=== PATIENT | female | born 1990 | race Caucasian/White ===

== ENCOUNTER 2017-06-26 20:43 | Inpatient (IN) | payer OTHER ==
[~2017-06-26] VITALS: Ht 170.2 cm; Wt 49.5 kg
--- NOTE | 2017-06-26 21:09 | EMERGENCY ROOM VISIT NOTE ---
History Report prepared by Yu: Errol Ocampo Under the Supervision of: Dr. Sukhjinder Dangelo M.D. First contact with patient: 20:50 Chief Complaint: MENTAL HEALTH EVALUATION Stated Complaint: MHID History of Present Illness The patient is a 26 year old white female with a past medical history of bipolar disorder who presents to the ED with a cc of constant suicidal ideations beginning a few months ago. Pt states she currently takes 25mg of Lamictal for bipolar disorder. She reports she just started the Lamictal a few months ago after being hospitalized after starting Effexor. Pt notes she has not felt herself since she was on Effexor. She states she moved her three weeks ago and applied for 36 jobs in three days and walked 40 miles. Pt reports she will go home and overdose on Benadryl and Tylenol if she is discharged. She notes she has been hitting herself to inflict bruises, and the past few weeks have been hazy. Pt states she also has a history of cutting herself and head hitting. Positive constant sensation of something on her skin burning, one alcoholic drink a night. Negative missing a dose of medication, drug use, tobacco use, taking extra medication, homicidal ideations, auditory hallucinations, visual hallucinations. Source of History: patient Onset: few months ago Quality: other (SI) Timing: constant Modifying Factors (Worsening): other (Effexor) Note: Associated symptoms: sensation of something on her skin burning Denies: homicidal ideations, auditory hallucinations, visual hallucinations Review of Systems See HPI for pertinent positives and negatives. A total of ten systems were reviewed and were otherwise negative. Past Medical & Surgical Medical Problems: (1) Bipolar disorder Family History Patient reports no known family medical history. Social History Alcohol Use: occasionally Marital Status: single Housing Status: lives alone Occupation Status: employed Current/Historical Medications Scheduled Cyanocobalamin (Cyanocobalamin), 1,000 MCG SQ MONTHLY Etonogestrel (Nexplanon), 68 MG INTRAD 3YEARS Lamotrigine (Lamictal), 25 MG PO DAILY Allergies Coded Allergies: Dairy (Verified Adverse Reaction, Intermediate, GI UPSET, RASH, 06/26/17) Uncoded Allergies: ARTIFICIAL SWEETNER (Adverse Reaction, Intermediate, GI UPSET AND HEADACHE , 06/26/17) Physical Exam Vital Signs Date Time Temp Pulse Resp B/P (MAP) Pulse Ox O2 Delivery O2 Flow Rate FiO2 06/26/17 22:27 87 108/75 99 Room Air 06/26/17 20:48 36.7 85 109/68 100 Room Air Physical Exam GENERAL: Awake, alert, well-appearing, NAD HENT: Normocephalic, atraumatic. EYES: Normal conjunctiva. Sclera non-icteric. NECK: Supple. No nuchal rigidity. FROM. RESPIRATORY: CTAB, no rhonchi, wheezing, crackles CARDIAC: RRR, no MRG ABDOMEN: Soft, NTND, BS+ MSK: No chest wall TTP, no LE edema NEURO: GCS 15, CN 2-12 intact, moves all 4s on command SKIN: No rash or jaundice noted. PSYCHIATRIC: No HI, AVH. Positive formication and SI. Medical Decision & Procedures Laboratory Results 06/26/17 21:00 Red Blood Count 4.66, Mean Corpuscular Volume 90.8, Mean Corpuscular Hemoglobin 31.1, Mean Corpuscular Hemoglobin Concent 34.3, Mean Platelet Volume 9.5, Neutrophils (%) (Auto) 47.6, Lymphocytes (%) (Auto) 40.8, Monocytes (%) (Auto) 10.0, Eosinophils (%) (Auto) 1.0, Basophils (%) (Auto) 0.4, Neutrophils # (Auto ) 4.97, Lymphocytes # (Auto) 4.26, Monocytes # (Auto) 1.04, Eosinophils # (Auto ) 0.10, Basophils # (Auto) 0.04 06/26/17 21:00 Test 06/26/17 21:00 06/26/17 21:08 White Blood Count 10.43 K/uL (4.8-10.8) Red Blood Count 4.66 M/uL (4.2-5.4) Hemoglobin 14.5 g/dL (12.0-16.0) Hematocrit 42.3 % (37-47) Mean Corpuscular Volume 90.8 fL (80-100) Mean Corpuscular Hemoglobin 31.1 pg (25-34) Mean Corpuscular Hemoglobin Concent 34.3 g/dl (32-36) Platelet Count 347 K/uL (130-400) Mean Platelet Volume 9.5 fL (7.4-10.4) Neutrophils (%) (Auto) 47.6 % Lymphocytes (%) (Auto) 40.8 % Monocytes (%) (Auto) 10.0 % Eosinophils (%) (Auto) 1.0 % Basophils (%) (Auto) 0.4 % Neutrophils # (Auto) 4.97 K/uL (1.4-6.5) Lymphocytes # (Auto) 4.26 K/uL (1.2-3.4) Monocytes # (Auto) 1.04 K/uL (0.11-0.59) Eosinophils # (Auto) 0.10 K/uL (0-0.5) Basophils # (Auto) 0.04 K/uL (0-0.2) RDW Standard Deviation 40.6 fL (36.4-46.3) RDW Coefficient of Variation 12.3 % (11.5-14.5) Immature Granulocyte % (Auto) 0.2 % Immature Granulocyte # (Auto) 0.02 K/uL (0.00-0.02) Anion Gap 7.0 mmol/L (3-11) Est Creatinine Clear Calc Drug Dose 92.1 ml/min Estimated GFR () 140.5 Estimated GFR (Non- 121.3 BUN/Creatinine Ratio 10.9 (10-20) Calcium Level 8.9 mg/dl (8.5-10.1) Magnesium Level 2.3 mg/dl (1.8-2.4) Total Bilirubin 0.4 mg/dl (0.2-1) Direct Bilirubin 0.1 mg/dl (0-0.2) Aspartate Amino Transf (AST/SGOT) 10 U/L (15-37) Alanine Aminotransferase (ALT/SGPT) 14 U/L (12-78) Alkaline Phosphatase 82 U/L (45-117) Total Protein 7.3 gm/dl (6.4-8.2) Albumin 4.5 gm/dl (3.4-5.0) Thyroid Stimulating Hormone (TSH) 1.880 uIu/ml (0.300-4.500) Salicylates Level < 1.7 mg/dl (2.8-20) Acetaminophen Level < 2 ug/ml (10-30) Ethyl Alcohol mg/dL < 3.0 mg/dl (0-3) Urine Color YELLOW Urine Appearance TURBID (CLEAR) Urine pH 6.5 (4.5-7.5) Urine Specific [place] 1.020 (1.000-1.030) Urine Protein NEG (NEG) Urine Glucose (UA) NEG (NEG) Urine Ketones NEG (NEG) Urine Occult Blood NEG (NEG) Urine Nitrite NEG (NEG) Urine Bilirubin NEG (NEG) Urine Urobilinogen NEG (NEG) Urine Leukocyte Esterase TRACE (NEG) Urine WBC (Auto) 1-5 /hpf (0-5) Urine RBC (Auto) 0-4 /hpf (0-4) Urine Hyaline Casts (Auto) 1-5 /lpf (0-5) Urine Epithelial Cells (Auto) >30 /lpf (0-5) Urine Bacteria (Auto) 1+ (NEG) Urine Mucus PRESENT (NONE PRSENT) Urine Test NEG (NEG) Urine Opiates Screen NEG (NEG) Urine Methadone, Qualitative NEG (NEG) Urine Barbiturates NEG (NEG) Urine Phencyclidine (PCP) Level NEG (NEG) Ur Amphetamine/Methamphetamine NEG (NEG) MDMA (Ecstasy) Screen NEG (NEG) Urine Benzodiazepines Screen NEG (NEG) Urine Cocaine Metabolite NEG (NEG) Urine Marijuana (THC) NEG (NEG) Laboratory results reviewed by me Medications Administered Medications (Trade) Dose Ordered Sig/Jay Route Start Time Stop Time Status Last Admin Dose Admin Potassium Chloride (Klor-Con M10) 40 meq STK-MED ONCE .ROUTE 06/26/17 21:58 06/26/17 21:59 DC 06/26/17 22:00 40 MEQ ED Course 2054: The patient was evaluated in room A06. A complete history and physical exam was performed. 2334: I discussed with the psychiatric pillowcase cutter. The patient is medically cleared an accepted at [facility]. Medical Decision Nursing notes reviewed. Ancillary studies and prior records reviewed. The patient is a 26 year old white female with a past medical history of bipolar disorder who presents to the ED with a cc of constant suicidal ideations beginning a few months ago. Differential diagnosis: Etiologies such as mood disorder, infection, hypoglycemia, electrolyte abnormalities, cardiac sources, intracerebral event, toxicologic, neurologic, as well as others were entertained. Patient was seen and evaluated the bedside. Patient was complaining some SI with plan to overdose on Benadryl and Tylenol she returned home. Patient has had a history of cutting and head pain. No recent head pain the patient does not take any blood thinning medications. Of note the patient did recently move and was recently transitioned from Effexor to Lamictal. Patient sounds as though she did have an episode of ainsley and now may be depressed. The patient states that she applied over 36 jobs stayed up for 2 days and walked 40 miles in a very short period of time. Patient did have blood work completed along with urinalysis, UDS, tox screen, and urine test. Patient's blood work did show some mild hypokalemia which is repleted. Magnesium level was also added. Patient's tox screen was negative. Patient did have borderline low sugar at 69. Patient was given a meal and her repeat sugar was greater than 80. Patient was deemed medically clear at this time. Patient was accepted for voluntary inpatient treatment. Patient was taken to 3 S. Impression Primary Impression: Bipolar disorder Additional Impressions: Depression Hypokalemia Suicidal ideation Scribe Attestation The scribe's documentation has been prepared under my direction and personally reviewed by me in its entirety. I confirm that the note above accurately reflects all work, treatment, procedures, and medical decision making performed by me. Departure Information Dispostion [facility] Acute Care Patient Instructions My [facility] Problem Qualifiers Primary Impression: Bipolar disorder Active/Remission status: currently active Current bipolar episode type: depressed Current episode severity: moderate Qualified Codes: F31.32 - Bipolar disorder, current episode depressed, moderate Additional Impressions: Depression Depression Type: unspecified Qualified Codes: F32.9 - Major depressive disorder, single episode, unspecified
[2017-06-26 21:17] LABS: BASO % 0.4 %; BASO ABS # 0.04 K/uL (0-0.2); HEMATOCRIT 42.3 % (37-47); HEMOGLOBIN 14.5 g/dL (12.0-16.0); IG# 0.02 K/uL (0.00-0.02); LYMPH % 40.8 %; LYMPH ABS # 4.26 K/uL (1.2-3.4); MEAN CELL VOLUME 90.8 fL (80-100); MEAN CORPUSCULAR HEMOGLOBIN 31.1 pg (25-34); MEAN CORPUSCULAR HGB CONC 34.3 g/dl (32-36); MEAN PLATELET VOLUME 9.5 fL (7.4-10.4); MONO ABS # 1.04 K/uL (0.11-0.59); NEUT % 47.6 %; NEUT ABS # 4.97 K/uL (1.4-6.5); PLATELET COUNT 347 K/uL (130-400); RED CELL DISTRIBUTION WIDTH CV 12.3 % (11.5-14.5); RED CELL DISTRIBUTION WIDTH SD 40.6 fL (36.4-46.3); WHITE BLOOD COUNT 10.43 K/uL (4.8-10.8)
[2017-06-26 21:34] LABS: ALBUMIN 4.5 gm/dl (3.4-5.0); CALCIUM 8.9 mg/dl (8.5-10.1); CREATININE 0.7 mg/dl (0.60-1.20); POTASSIUM 3.4 mmol/L (3.5-5.1)
[2017-06-26 21:44] LABS: TOTAL PROTEIN 7.3 gm/dl (6.4-8.2)
[2017-06-26] MEDS ORDERED: POTASSIUM CHLORIDE 20 MEQ TABCR PO STA (21:52)
[2017-06-26] MEDS ORDERED: POTASSIUM CHLORIDE 10 MEQ TABCR ONE (21:58)
[2017-06-26] MEDS ORDERED: LAMO25TA PO (22:33)
[2017-06-26] MEDS ORDERED: ETON1IMP2 INTRAD (22:36)
[2017-06-26] MEDS ORDERED: CYNI1000 SQ (22:40)
[2017-06-27] MEDS ORDERED: NURSING VERBAL MED ORDER ONE (00:15)
[2017-06-27 00:18] VITALS: BMI 16.3
[2017-06-27 00:30] VITALS: BP 93/64; PULSE 93; TEMP 36.8; BMI 16.3
[2017-06-27 00:37] VITALS: O2SAT 98
[2017-06-27] MEDS ORDERED: SODIUM CHLORIDE 0.65% NA SOLN 45 ML (OCEAN) PRN (01:00)
[2017-06-27] MEDS ORDERED: BISMUTH SUBSALICYLATE PER ML OMNICELL CHARGE PO PRN (01:00)
[2017-06-27] MEDS ORDERED: MAGNESIUM HYDROXIDE SUSP 30 ML UDC PO PRN (01:00)
[2017-06-27] MEDS ORDERED: ACETAMINOPHEN 325 MG TAB PO PRN (01:00)
[2017-06-27 01:04] VITALS: BMI 17.1
[2017-06-27] MEDS: hydrOXYzine HCL 25 MG TAB PO PRN ×2 (01:08→21:48)
[2017-06-27 06:47] VITALS: BP_SYST 96; BP_SYST 97; BP_DIAS 63; BP_DIAS 66; PULSE 92; PULSE 99; TEMP 36.8
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
[2017-06-27 14:49] VITALS: Ht 170.2 cm; Wt 49.5 kg
[2017-06-27] MEDS ORDERED: QUETIAPINE FUMARATE 100 MG TAB PO SCH (22:00)
[2017-06-28 06:51] VITALS: BP_SYST 100; BP_SYST 95; BP_DIAS 65; BP_DIAS 66; PULSE 73; PULSE 97; TEMP 36.8
[2017-06-28] MEDS: hydrOXYzine HCL 25 MG TAB PO PRN ×2 (09:45→22:30)
--- NOTE | 2017-06-28 11:17 | Psychiatric Progress Notes ---
Progress Note Date of Service Jun 28, 2017. Interval History 26-year-old woman admitted voluntarily with severe depression and suicidality. Chief Complaint "Not very good". Subjective Patient was seen & assessed interval progress reviewed with Treatment Team. The patient had a meeting with her mother this AM and got so upset she had to leave for a while. She feels that she is a failure, that she's never going to get better because she doesn't know what she needs. She feels guilty that her mother has to leave her job to come help her as "my mom has a life to live". She reports that her SI are worse today in light of the family meeting. She is attending groups, is eating all of her meals, and is tending to her ADL's. Her skin continues to feel like its on fire "like my skin isn't my skin", but says any skin eruptions have not worsened with increase to lamictal. She is able to contract for safety here on the unit saying "I guess I can't kill myself here so why try.". Sleep was much improved last night with vistaril and seroquel Review of Systems Constitutional: No fever, No chills, No sweats, No weight loss, No weakness, No fatigue, No problem reported ENT: No hearing loss, No unusual epistaxis, No nasal symptoms, No sore throat, No tinnitus, No dental problems, No trouble swallowing, No problem reported Respiratory: No cough, No sputum, No wheezing, No shortness of breath, No dyspnea on exertion, No dyspnea at rest, No hemoptysis, No problem reported Cardiovascular: No chest pain, No orthopnea, No PND, No edema, No claudication , No palpitations, No problem reported Abdomen: No pain, No nausea, No vomiting, No diarrhea, No constipation, No GI bleeding, No problem reported Musculoskeletal: No joint pain, No muscle pain, No swelling, No calf pain, No problem reported Neurologic: + problem reported (sensation of skin burning) Psychiatric: + depression symptoms (with SI) Integumentary: + problem reported (skin eruptions lauryn to acne) Sleep Information Total Hours of Sleep: 6.50 Meal Information Percent of Breakfast Consumed: 100 Percent of Lunch Consumed: 100 Percent of Dinner Consumed: 100 Mental Status Exam During interview pt is: alert and oriented, cooperative Appearance: appropriately dressed, appropriately groomed Eye contact is: good Motor behavior is: steady gait & station, no abnormal motor movements Speech: normal in rate, rhythm & volume Affect: depressed, flat Mood is: depressed Thought process: goal directed Thought content: reality based without delusions Suicidal thought are: present, Plan: present (To overdose) Homicidal thoughts are: denied Hallucinations: denies auditory, denies visual Cognition: memory grossly intact, attention grossly intact, language grossly intact Intelligence estimated to be: average Insight: impaired Judgement: impaired Impression Difficult day, feeling that she will never get better, and still with SI. Will increase seroquel to 150 mg. HS tonight, continue lamictal. Showing some borderline traits with reactivity, relationship stress, abandonment issues. Will need a seasoned therapist at discharge. UA negative. Baseline FLP and FBS WNL. Plan (1) Bipolar disorder 06/27 - Will increase Lamictal to 50 mg. If rash emerges, then DC - Seroquel 100 mg. HS to target mood. titrate as tolerated - FLP and FBS for monitoring on atypicals - Repeat UA/C&S if indicated - Family meeting - Will need psychiatric aftercare - Q 15 min checks for safety - Encourage participation in group and individual counseling - Assist the patient to learn and utilize additional healthy coping strategies - Obtain records from current provider 06/28 - Increase Seroquel to 150 mg. HS - Continue current lamictal dose - Will need a seasoned therapist. (2) Neurologic abnormality 06/27 - Patient with long standing variation in pupil dilation lt>rt - Only other neuro symptoms is the burning sensations that emerged on Effexor - +family history for MS - Refer to neuro post discharge Dr. Sendy Martinez has personally been involved in reviewing this case and the development of these recommendations. Discharge / Aftercare Planning Primary Care Physician: Name: Alisa Jaramillo PA-C ([place]) Therapist: Name: None Simulation Analyst: Name: None Visit Code E&M Code: 55701 Inventory Assets Strengths: Good support from mother, has a job Needs: To learn and utilize additional healthy coping strategies Risk Factors Assessment : Yes /single/: Yes Higher / Fall in social status: No Health problems: No Mental Health Diagnoses: Yes Substance use disorders: No Previous attempt: Yes Previous psychiatric stay: Yes Hopelessness: No Smoker: No Protective Factors Assessment Christian beliefs: No : No Employed: Yes Data Vital Signs Last 24 Hrs: Date Time Temp Pulse Resp B/P (MAP) Pulse Ox O2 Delivery O2 Flow Rate FiO2 06/28/17 06:51 36.8 73 16 100/66 97 95/65 Meds Administered Last 24 Hrs: Meds Administered (Past 24Hrs) Medications (Trade) Dose Ordered Sig/Jay Route Start Time Stop Time Status Last Admin Dose Admin Potassium Chloride (Klor-Con M10) 40 meq STK-MED ONCE .ROUTE 06/26/17 21:58 06/26/17 21:59 DC 06/26/17 22:00 40 MEQ Hydroxyzine HCl (Vistaril Tab) 50 mg HSZ PRN PO 06/27/17 01:00 07/27/17 00:59 06/27/17 21:48 50 MG Hydroxyzine HCl (Vistaril Tab) 25 mg Q4H PRN PO 06/27/17 01:00 07/27/17 00:59 06/28/17 09:45 25 MG Lamotrigine (Lamictal Tab) 25 mg QAM PO 06/27/17 09:00 06/27/17 10:51 DC 06/27/17 10:05 25 MG Lamotrigine (Lamictal Tab) 50 mg QAM PO 06/28/17 09:00 07/28/17 08:59 06/28/17 09:02 50 MG Lamotrigine (Lamictal Tab) 25 mg 1100 ONCE PO 06/27/17 11:00 06/27/17 11:02 DC 06/27/17 12:22 25 MG Quetiapine Fumarate (seroQUEL TAB) 100 mg HS PO 06/27/17 22:00 07/27/17 21:59 06/27/17 21:44 100 MG Lab Results Last 24 Hrs: Last 24 Hours Test 06/28/17 06:58 Fasting Glucose 94 mg/dl Triglycerides Level 70 mg/dl Cholesterol Level 109 mg/dl HDL Cholesterol 42 mg/dl LDL Cholesterol, Calculated 53 mg/dl VLDL Cholesterol, Calculated 14 mg/dl Cholesterol/HDL Ratio 2.6 Problem Qualifiers (1) Bipolar disorder: Active/Remission status: currently active Current bipolar episode type: depressed Current episode severity: moderate Qualified Codes: F31.32 - Bipolar disorder, current episode depressed, moderate
[2017-06-28] MEDS ORDERED: QUETIAPINE FUMARATE 100 MG TAB PO SCH (22:00)
[2017-06-29 07:02] VITALS: BP_SYST 105; BP_SYST 98; BP_DIAS 63; BP_DIAS 67; PULSE 72; PULSE 97; TEMP 36.8
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
[2017-06-29] MEDS: QUETIAPINE FUMARATE 100 MG TAB PO SCH (21:36)
[2017-06-30 07:00] VITALS: BP 102/68; PULSE 89; PULSE 96; TEMP 36.8
--- NOTE | 2017-06-30 10:35 | Psychiatric Progress Notes ---
Progress Note Date of Service Jun 30, 2017. Interval History 26-year-old woman admitted voluntarily with severe depression and suicidality. Chief Complaint "I feel a little better today.". Subjective Patient was seen & assessed interval progress reviewed with Treatment Team. The patient had a difficult day yesterday, rated her mood 1/10. Today she is feeling some better rating her mood 4/10. She has received visits from her mother daily and understands that its something her mother needs to do for herself, but thinks its not necessary for her to take 4 hours out of her life every day. Mother will take a break for the weekend since its [employer] game making hotels scarce. Today Lina is worried about a bump on her tongue and concerned that its related to lamictal. She refused her AM dose until we talked. She has been talking in 1:1 about her breakup and how difficult that has been for her, and feels that the peer group here right now has been helpful to her because they are all quite verbal. She feels that "I tried to leave the nest and I failed". She reports that her work is aware that she is in the hospital. Mother has also been in touch with them, and work indicates that her job is waiting for her. She says that she has at least 2 other job offers if she doesn't return to her current job. She continues to have SI, feeling that she doesn't know how to feel better. She fell asleep quickly last night but did not stay asleep, and today feels sedated. Review of Systems Constitutional: + fatigue ENT: + problem reported (small bump on the lt tip of her tongue. No tongue swelling) Respiratory: No cough, No sputum, No wheezing, No shortness of breath, No dyspnea on exertion, No dyspnea at rest, No hemoptysis, No problem reported Cardiovascular: No chest pain, No orthopnea, No PND, No edema, No claudication , No palpitations, No problem reported Abdomen: No pain, No nausea, No vomiting, No diarrhea, No constipation, No GI bleeding, No problem reported Musculoskeletal: No joint pain, No muscle pain, No swelling, No calf pain, No problem reported Neurologic: No memory loss, No paralysis, No weakness, No numbness/tingling, No vertigo, No balance problems, No problem reported Psychiatric: + depression symptoms (with SI) Integumentary: + problem reported (No rashes to arms or legs) Sleep Information Total Hours of Sleep: 6.50 Meal Information Percent of Breakfast Consumed: 90 Percent of Lunch Consumed: 100 Percent of Dinner Consumed: 100 Mental Status Exam During interview pt is: alert and oriented, cooperative Appearance: appropriately dressed, appropriately groomed (Short blonde hair, glasses), appeared stated age Eye contact is: good Motor behavior is: steady gait & station, no abnormal motor movements Speech: normal in rate, rhythm & volume Affect: mood congruent, depressed, flat Mood is: depressed Thought process: goal directed Thought content: cognitive distortions Suicidal thought are: present, Plan: present (To overdose), Intent: denied (On the unit, but states she would try to harm herself if not in the hospital) Homicidal thoughts are: denied Hallucinations: denies auditory, denies visual Cognition: memory grossly intact, attention grossly intact, language grossly intact Intelligence estimated to be: average Insight: impaired Judgement: impaired Medication Trials Prozac- aggressive Klonopin- abused Effexor- skin burning sensation Wellbutrin- flu like symptoms Abilify- Weight gain Trazodone- N, morning hangover Impression The patient remains depressed and suicidal and making good use of both group and individual counseling. Having some sedation from Seroquel. Will hold titration tonight. I don't believe that the bump on her tongue is an allergic reaction to lamictal so encouraged her to take it. We will continue to observe closely for an S&S of SJS. Plan (1) Bipolar disorder 06/27 - Will increase Lamictal to 50 mg. If rash emerges, then DC - Seroquel 100 mg. HS to target mood. titrate as tolerated - FLP and FBS for monitoring on atypicals - Repeat UA/C&S if indicated - Family meeting - Will need psychiatric aftercare - Q 15 min checks for safety - Encourage participation in group and individual counseling - Assist the patient to learn and utilize additional healthy coping strategies - Obtain records from current provider 06/28 - Increase Seroquel to 150 mg. HS - Continue current lamictal dose - Will need a seasoned therapist. 06/29 -Increase quetiapine to 200 mg nightly. Continue lamotrigine standard dose titration. -Fasting lipid profile and glucose for baseline on an atypical antipsychotic were within normal limits. 06/30 - Continue current meds - Try to provide patient with some exercises from DBT (2) Neurologic abnormality 06/27 - Patient with long standing variation in pupil dilation lt>rt - Only other neuro symptoms is the burning sensations that emerged on Effexor - +family history for MS - Refer to neuro post discharge (3) Borderline personality disorder 06/29 -patient reports she has been diagnosed with borderline personality disorder, although she does not necessarily agree with the diagnosis. She has displayed traits here, including reactivity of mood, interpersonal difficulties , chronic SI, and abandonment issues. 06/30 - Support appropriate boundaries Discharge / Aftercare Planning Primary Care Physician: Name: Alisa Jaramillo PA-C ([place]) Therapist: Name: None Boot Lace Cutter Machine: Name: Melva Neurologist: Name: [facility] Date of Appointment: July 31, 2017 Time of Appointment: 1:25 p.m. Appointment Notes: [address], [place] [address] Visit Code E&M Code: 53134 Inventory Assets Strengths: Good support from mother, has a job Needs: To learn and utilize additional healthy coping strategies, outpatient care Risk Factors Assessment : Yes /single/: Yes Higher / Fall in social status: No Access to guns: No Health problems: No Mental Health Diagnoses: Yes Substance use disorders: No Previous attempt: Yes Family history of suicide: No Previous psychiatric stay: Yes Hopelessness: No Smoker: No Protective Factors Assessment Rastafarian beliefs: No : No Responsible for young children: No Employed: Yes Stable relationships: No Supportive family: Yes Good rapport with provider: No Data Vital Signs Last 24 Hrs: Date Time Temp Pulse Resp B/P (MAP) Pulse Ox O2 Delivery O2 Flow Rate FiO2 06/30/17 07:00 36.8 89 16 102/68 96 102/68 Meds Administered Last 24 Hrs: Meds Administered (Past 24Hrs) Medications (Trade) Dose Ordered Sig/Jay Route Start Time Stop Time Status Last Admin Dose Admin Quetiapine Fumarate (seroQUEL TAB) 150 mg HS PO 06/28/17 22:00 06/29/17 10:53 DC 06/28/17 21:29 150 MG Quetiapine Fumarate (seroQUEL TAB) 200 mg HS PO 06/29/17 22:00 07/28/17 21:59 06/29/17 21:36 200 MG Lab Results Last 24 Hrs: 06/26/17 21:00 Red Blood Count 4.66, Mean Corpuscular Volume 90.8, Mean Corpuscular Hemoglobin 31.1, Mean Corpuscular Hemoglobin Concent 34.3, Mean Platelet Volume 9.5, Neutrophils (%) (Auto) 47.6, Lymphocytes (%) (Auto) 40.8, Monocytes (%) (Auto) 10.0, Eosinophils (%) (Auto) 1.0, Basophils (%) (Auto) 0.4, Neutrophils # (Auto ) 4.97, Lymphocytes # (Auto) 4.26, Monocytes # (Auto) 1.04, Eosinophils # (Auto ) 0.10, Basophils # (Auto) 0.04 06/26/17 21:00 Test 06/26/17 21:00 06/26/17 21:08 06/26/17 22:31 06/27/17 00:00 White Blood Count 10.43 K/uL (4.8-10.8) Red Blood Count 4.66 M/uL (4.2-5.4) Hemoglobin 14.5 g/dL (12.0-16.0) Hematocrit 42.3 % (37-47) Mean Corpuscular Volume 90.8 fL (80-100) Mean Corpuscular Hemoglobin 31.1 pg (25-34) Mean Corpuscular Hemoglobin Concent 34.3 g/dl (32-36) Platelet Count 347 K/uL (130-400) Mean Platelet Volume 9.5 fL (7.4-10.4) Neutrophils (%) (Auto) 47.6 % Lymphocytes (%) (Auto) 40.8 % Monocytes (%) (Auto) 10.0 % Eosinophils (%) (Auto) 1.0 % Basophils (%) (Auto) 0.4 % Neutrophils # (Auto) 4.97 K/uL (1.4-6.5) Lymphocytes # (Auto) 4.26 K/uL (1.2-3.4) Monocytes # (Auto) 1.04 K/uL (0.11-0.59) Eosinophils # (Auto) 0.10 K/uL (0-0.5) Basophils # (Auto) 0.04 K/uL (0-0.2) RDW Standard Deviation 40.6 fL (36.4-46.3) RDW Coefficient of Variation 12.3 % (11.5-14.5) Immature Granulocyte % (Auto) 0.2 % Immature Granulocyte # (Auto) 0.02 K/uL (0.00-0.02) Anion Gap 7.0 mmol/L (3-11) Est Creatinine Clear Calc Drug Dose 92.1 ml/min Estimated GFR () 140.5 Estimated GFR (Non- 121.3 BUN/Creatinine Ratio 10.9 (10-20) Calcium Level 8.9 mg/dl (8.5-10.1) Magnesium Level 2.3 mg/dl (1.8-2.4) Total Bilirubin 0.4 mg/dl (0.2-1) Direct Bilirubin 0.1 mg/dl (0-0.2) Aspartate Amino Transf (AST/SGOT) 10 U/L (15-37) Alanine Aminotransferase (ALT/SGPT) 14 U/L (12-78) Alkaline Phosphatase 82 U/L (45-117) Total Protein 7.3 gm/dl (6.4-8.2) Albumin 4.5 gm/dl (3.4-5.0) Thyroid Stimulating Hormone (TSH) 1.880 uIu/ml (0.300-4.500) Salicylates Level < 1.7 mg/dl (2.8-20) Acetaminophen Level < 2 ug/ml (10-30) Ethyl Alcohol mg/dL < 3.0 mg/dl (0-3) Urine Mucus PRESENT (NONE PRSENT) Urine Test NEG (NEG) Urine Opiates Screen NEG (NEG) Urine Methadone, Qualitative NEG (NEG) Urine Barbiturates NEG (NEG) Urine Phencyclidine (PCP) Level NEG (NEG) Ur Amphetamine/Methamphetamine NEG (NEG) MDMA (Ecstasy) Screen NEG (NEG) Urine Benzodiazepines Screen NEG (NEG) Urine Cocaine Metabolite NEG (NEG) Urine Marijuana (THC) NEG (NEG) Bedside Glucose 84 mg/dl (70-90) Urine Color YELLOW Urine Appearance CLEAR (CLEAR) Urine pH 7.5 (4.5-7.5) Urine Specific [place] 1.011 (1.000-1.030) Urine Protein NEG (NEG) Urine Glucose (UA) NEG (NEG) Urine Ketones NEG (NEG) Urine Occult Blood NEG (NEG) Urine Nitrite NEG (NEG) Urine Bilirubin NEG (NEG) Urine Urobilinogen NEG (NEG) Urine Leukocyte Esterase TRACE (NEG) Urine WBC (Auto) 1-5 /hpf (0-5) Urine RBC (Auto) 0-4 /hpf (0-4) Urine Hyaline Casts (Auto) 0 /lpf (0-5) Urine Epithelial Cells (Auto) 5-10 /lpf (0-5) Urine Bacteria (Auto) NEG (NEG) Test 06/28/17 06:58 Fasting Glucose 94 mg/dl (70-99) Triglycerides Level 70 mg/dl (0-150) Cholesterol Level 109 mg/dl (0-200) HDL Cholesterol 42 mg/dl LDL Cholesterol, Calculated 53 mg/dl VLDL Cholesterol, Calculated 14 mg/dl Cholesterol/HDL Ratio 2.6 Problem Qualifiers (1) Bipolar disorder: Active/Remission status: currently active Current bipolar episode type: depressed Current episode severity: severe Psychotic features: without psychotic features Qualified Codes: F31.4 - Bipolar disorder, current episode depressed, severe, without psychotic features
[2017-06-30] MEDS: QUETIAPINE FUMARATE 100 MG TAB PO SCH (22:14)
[2017-06-30] MEDS: hydrOXYzine HCL 25 MG TAB PO PRN (22:58)
[2017-07-01 06:45] VITALS: BP_SYST 100; BP_SYST 98; BP_DIAS 65; BP_DIAS 66; PULSE 82; PULSE 99; TEMP 36.6
--- NOTE | 2017-07-01 12:56 | Psychiatric Progress Notes ---
Progress Note Date of Service Jul 01, 2017. Interval History 26-year-old woman admitted voluntarily with severe depression and suicidality. Chief Complaint "I'm just very agitated today. I'm at my limit". Subjective Patient was seen & assessed interval progress reviewed with Nursing. Staff reports the patient continues to request multiple 1-to-1 counseling sessions per shift. She shared with staff she does not feel ready for discharge. Pt was seen today to assess progress since admission. Pt reports being "fed up" with a particular patient on the unit; however, is understanding and empathetic to this individual's needs. She concerns that the sore on the tip of her tongue is becoming more painful and "annoying". Pt states she is concerned about her ongoing SI as "I had a major mood swing yesterday, I went from a 1 to a 7, but was still suicidal." Pt reports she was feeling "happy to leave here soon so I could go through with it." Pt confirms that she has been attending groups regularly and processing her recent break-ups in 1-on-1 counseling, but feels "it isn't really helping". She denies feeling there are things we could be doing better/differently to better assist her in this process. Pt agreeable to continuing medication. When inquiring about SI, patient states, "yes, definitely." She denies other needs or concerns today. Review of Systems Psych: denies symptoms other than stated above Constitutional: reports generalized headache EENMT: reports sore to tip of tongue, remains painful Cardiovascular: denied GI: denied Neurologic: denied Remainder of 10 body systems also reviewed and denied other than noted above. Sleep Information Total Hours of Sleep: 6.75 Meal Information Percent of Breakfast Consumed: 100 Percent of Lunch Consumed: 100 Percent of Dinner Consumed: 100 Mental Status Exam During interview pt is: alert and oriented, cooperative Appearance: appropriately dressed, appropriately groomed (Short blonde hair, glasses), appeared stated age Eye contact is: good Motor behavior is: steady gait & station, no abnormal motor movements (pt appears very calm) Speech: normal in rate, rhythm & volume Affect: flat, other (reports feeling "agitated", however remains outwardly calm during encounter) Mood is: depressed, irritable ("agitated", "at my limit") Thought process: goal directed Thought content: cognitive distortions Suicidal thought are: present, Plan: present ("my plan has not changed since I' ve been in here" - OD), Intent: denied (cannot contract for safety outside of hospital setting) Homicidal thoughts are: denied Hallucinations: denies auditory, denies visual Cognition: memory grossly intact, attention grossly intact, language grossly intact Intelligence estimated to be: average Insight: impaired Judgement: impaired Medication Trials Prozac- aggressive Klonopin- abused Effexor- skin burning sensation Wellbutrin- flu like symptoms Abilify- Weight gain Trazodone- N, morning hangover Impression The patient remains depressed and suicidal. She reports concern as, even when her mood improves, her SI is ongoing. Pt reports she maintains the same plan to overdose on medications and cannot contract for safety outside of the hospital setting. Sore on patient's tongue is barely visible on exam; however, I'm sympathetic to the pain she reports. She does report cold sores on her lips in the past, but never on her tongue. Discussed that it is likely unrelated to the Lamictal, but encouraged her to continue to observe for worsening or appearance of a rash elsewhere on her body. Will continue to monitor as unlikely, but could be related to SJS from Lamictal titration. Pt aware and agreeable to approach. Will continue medication at current dosage as patient reports ongoing fatigue from HS Seroquel. Plan (1) Bipolar disorder 06/27 - Will increase Lamictal to 50 mg. If rash emerges, then DC - Seroquel 100 mg. HS to target mood. titrate as tolerated - FLP and FBS for monitoring on atypicals - Repeat UA/C&S if indicated - Family meeting - Will need psychiatric aftercare - Q 15 min checks for safety - Encourage participation in group and individual counseling - Assist the patient to learn and utilize additional healthy coping strategies - Obtain records from current provider 06/28 - Increase Seroquel to 150 mg. HS - Continue current lamictal dose - Will need a seasoned therapist. 06/29 -Increase quetiapine to 200 mg nightly. Continue lamotrigine standard dose titration. -Fasting lipid profile and glucose for baseline on an atypical antipsychotic were within normal limits. 06/30 - Continue current meds - Try to provide patient with some exercises from DBT 07/01 - Continue current medications - Encouraged to continue to monitor sore on tongue as well as development of rash elsewhere, agreeable to continuing Lamictal titration at this time - Continue to work on establishing aftercare with seasoned therapist and psychiatrist (2) Neurologic abnormality 06/27 - Patient with long standing variation in pupil dilation lt>rt - Only other neuro symptoms is the burning sensations that emerged on Effexor - +family history for MS - Refer to neuro post discharge (3) Borderline personality disorder 06/29 -patient reports she has been diagnosed with borderline personality disorder, although she does not necessarily agree with the diagnosis. She has displayed traits here, including reactivity of mood, interpersonal difficulties , chronic SI, and abandonment issues. 06/30 - Support appropriate boundaries Discharge / Aftercare Planning Primary Care Physician: Name: Alisa Jaramillo PA-C ([place]) Date of Appointment: Jul 06, 2017 Time of Appointment: 8:45 a.m. Appointment Notes: [facility]– [place] [address] Therapist: Name: Day Douglas Date of Appointment: Jul 04, 2017 Time of Appointment: 11:30 am Appointment Notes: [address] [place] [id number] Sleep Lab Technician: Name: None Neurologist: Name: [facility] Date of Appointment: July 31, 2017 Time of Appointment: 1:25 p.m. Appointment Notes: [address] [place] [address] Visit Code E&M Code: 19827 Inventory Assets Strengths: Good support from mother, has a job Needs: To learn and utilize additional healthy coping strategies, outpatient care Risk Factors Assessment : Yes /single/: Yes Higher / Fall in social status: No Access to guns: No Health problems: No Mental Health Diagnoses: Yes Substance use disorders: No Previous attempt: Yes Family history of suicide: No Previous psychiatric stay: Yes Hopelessness: No Smoker: No Protective Factors Assessment Faith beliefs: No : No Responsible for young children: No Employed: Yes Stable relationships: No Supportive family: Yes Good rapport with provider: No Data Vital Signs Last 24 Hrs: Date Time Temp Pulse Resp B/P (MAP) Pulse Ox O2 Delivery O2 Flow Rate FiO2 07/01/17 06:45 36.6 82 16 100/65 99 98/66 Meds Administered Last 24 Hrs: Meds Administered (Past 24Hrs) Medications (Trade) Dose Ordered Sig/Jay Route Start Time Stop Time Status Last Admin Dose Admin Quetiapine Fumarate (seroQUEL TAB) 200 mg HS PO 06/29/17 22:00 07/28/17 21:59 06/30/17 22:14 200 MG Problem Qualifiers (1) Bipolar disorder: Active/Remission status: currently active Current bipolar episode type: depressed Current episode severity: severe Psychotic features: without psychotic features Qualified Codes: F31.4 - Bipolar disorder, current episode depressed, severe, without psychotic features
[2017-07-01] MEDS: QUETIAPINE FUMARATE 100 MG TAB PO SCH (20:50)
[2017-07-02 06:28] VITALS: BP_SYST 100; BP_SYST 98; BP_DIAS 62; BP_DIAS 66; PULSE 76; PULSE 89; TEMP 36.7
--- NOTE | 2017-07-02 12:30 | Psychiatric Progress Notes ---
Progress Note Date of Service Jul 02, 2017. Interval History 26-year-old woman admitted voluntarily with severe depression and suicidality. Chief Complaint "My tongue still hurts and even when my mood is better I still want to kill myself". Subjective Patient was seen & assessed interval progress reviewed with Treatment Team. Slept well overnight. Speaking often with staff requesting 1:1 counseling. Indicated to staff last evening that, if she left the hospital, she would OD on her meds. Is attending groups. Reports mornings typically worse re mood but when happier in evening still feeling suicidal. "It's like I'm all giddy about the idea." She continues to c/o pain on all aspects on distal 1/3 of tongue. In examining her there are two small nonulcerative 1mm reddened lesions on ventral surface which possibly to be abrasions/irritations. There are no other lesions on mucosal surfaces of mouth or eyes. No rash. Reviewed h/o rash on dorsum of distal arms and legs which she described as flat red spots around time on 50mg of lamictal in past which did not progress. She is perceiving some benefit from the seroquel. Notes appetite increase. Denies h/o preoccupation w/ body image, anorexia, or bulimia. She endorses continued suicidal ideation and unable to CFS outside of the hospital at present. Review of Systems Constitutional: No fever Respiratory: No cough, No sputum, No wheezing, No shortness of breath, No dyspnea on exertion, No dyspnea at rest, No hemoptysis, No problem reported Integumentary: + problem reported (tongue pain), No rash Sleep Information Total Hours of Sleep: 7.50 Meal Information Percent of Breakfast Consumed: 75 Percent of Lunch Consumed: 100 Percent of Dinner Consumed: 75 Mental Status Exam During interview pt is: alert and oriented, cooperative Appearance: appropriately dressed, appropriately groomed (Short blonde hair, glasses), appeared stated age Eye contact is: good Motor behavior is: steady gait & station, no abnormal motor movements Speech: other (variable rate, at times pressured) Affect: mood congruent, other Mood is: depressed, irritable Thought process: goal directed Thought content: cognitive distortions Suicidal thought are: present, Plan: present (OD), Intent: denied (cannot contract for safety outside of hospital setting) Homicidal thoughts are: denied Hallucinations: denies auditory, denies visual Cognition: memory grossly intact, attention grossly intact, language grossly intact Intelligence estimated to be: average Insight: impaired Judgement: impaired Medication Trials Prozac- aggressive Klonopin- abused Effexor- skin burning sensation Wellbutrin- flu like symptoms Abilify- Weight gain Trazodone- N, morning hangover Impression The patient remains depressed and suicidal and requires continued hospitalization and pharmacotherapy for safety and treatment. Plan (1) Bipolar disorder 06/27 - Will increase Lamictal to 50 mg. If rash emerges, then DC - Seroquel 100 mg. HS to target mood. titrate as tolerated - FLP and FBS for monitoring on atypicals - Repeat UA/C&S if indicated - Family meeting - Will need psychiatric aftercare - Q 15 min checks for safety - Encourage participation in group and individual counseling - Assist the patient to learn and utilize additional healthy coping strategies - Obtain records from current provider 06/28 - Increase Seroquel to 150 mg. HS - Continue current lamictal dose - Will need a seasoned therapist. 06/29 -Increase quetiapine to 200 mg nightly. Continue lamotrigine standard dose titration. -Fasting lipid profile and glucose for baseline on an atypical antipsychotic were within normal limits. 06/30 - Continue current meds - Try to provide patient with some exercises from DBT 07/01 - Continue current medications - Encouraged to continue to monitor sore on tongue as well as development of rash elsewhere, agreeable to continuing Lamictal titration at this time - Continue to work on establishing aftercare with seasoned therapist and psychiatrist 07/02 - while I am not convinced that the very small non ulcerative lesions on her tongue are secondary to the lamictal and she shows no rash or fever, will d/c out of abundance of precaution as her discomfort persists and the lamictal will take many weeks to titrate. She can reconsider this or an alternative mood stabilizer as a therapeutic agent with her outpatient provider, but will, for now, try to utilize the seroquel. - increase Seroquel to 300mg qhs for additional mood stabilization (2) Neurologic abnormality 06/27 - Patient with long standing variation in pupil dilation lt>rt - Only other neuro symptoms is the burning sensations that emerged on Effexor - +family history for MS - Refer to neuro post discharge (3) Borderline personality disorder 06/29 -patient reports she has been diagnosed with borderline personality disorder, although she does not necessarily agree with the diagnosis. She has displayed traits here, including reactivity of mood, interpersonal difficulties , chronic SI, and abandonment issues. 06/30 - Support appropriate boundaries Discharge / Aftercare Planning Primary Care Physician: Name: Alisa Jaramillo PA-C ([place]) Date of Appointment: Jul 06, 2017 Time of Appointment: 8:45 a.m. Appointment Notes: [address] [place] [address] Therapist: Name: [facility] Date of Appointment: Jul 04, 2017 Time of Appointment: 11:30 am Appointment Notes: [address] [place] [address] Brake Lining Maker: Name: Melva Neurologist: Name: [facility] Date of Appointment: July 31, 2017 Time of Appointment: 1:25 p.m. Appointment Notes: [address] [facility] [place] [address] Inventory Assets Strengths: Good support from mother, has a job Needs: To learn and utilize additional healthy coping strategies, outpatient care Risk Factors Assessment : Yes /single/: Yes Higher / Fall in social status: No Access to guns: No Health problems: No Mental Health Diagnoses: Yes Substance use disorders: No Previous attempt: Yes Family history of suicide: No Previous psychiatric stay: Yes Hopelessness: No Smoker: No Protective Factors Assessment Advent beliefs: No : No Responsible for young children: No Employed: Yes Stable relationships: No Supportive family: Yes Good rapport with provider: No Data Vital Signs Last 24 Hrs: Date Time Temp Pulse Resp B/P (MAP) Pulse Ox O2 Delivery O2 Flow Rate FiO2 07/02/17 06:28 36.7 76 14 100/62 89 98/66 Problem Qualifiers (1) Bipolar disorder: Active/Remission status: currently active Current bipolar episode type: depressed Current episode severity: severe Psychotic features: without psychotic features Qualified Codes: F31.4 - Bipolar disorder, current episode depressed, severe, without psychotic features
[2017-07-02] MEDS: CHLORASEPTIC 1.4% SOLN 180 ML BTL MT PRN ×2 (13:49→22:38)
[2017-07-02] MEDS: QUETIAPINE FUMARATE 300 MG TAB PO SCH (21:46)
[2017-07-03 06:50] VITALS: BP 94/58; PULSE 75; PULSE 99; TEMP 36.5
[2017-07-03] MEDS: CHLORASEPTIC 1.4% SOLN 180 ML BTL MT PRN (11:22)
--- NOTE | 2017-07-03 12:06 | Psychiatric Progress Notes ---
Progress Note Date of Service Jul 03, 2017. Interval History 26-year-old woman admitted voluntarily with severe depression and suicidality. Chief Complaint "It's been up and down a lot". Subjective Patient was seen & assessed interval progress reviewed with Treatment Team. Staff reports the patient continues to report tongue pain as well as other somatic concerns. She continues to request 1-on-1 counseling sessions. Pt continues to endorse SI with plan to overdose if discharged. Pt was seen today to assess progress since admission. Pt states she is currently a "5" in mood, but "SI is constant". Reviewed with patient yesterday's discussion to discontinue Lamictal. Pt states she was told it could be started again on an outpatient basis. Pt reports a period of dizziness 30-45 minutes after taking her Seroquel last evening, which was concerning to her. She also shares increased mood fluctuations last evening in which she was "Swinging between a '3 ' and a '9' for about 3-4 hours", she reports spending about 5 minutes in each mood prior to swinging to the next. Pt reports ongoing SI and continues to be unable to contract for safety outside of the hospital setting. Pt denies new psychiatric concerns. Review of Systems Psych: denies symptoms other than stated above Constitutional: denied EENMT: reports mild improvement in tongue pain Cardiovascular: denied GI: denied Neurologic: denied Remainder of 10 body systems also reviewed and denied other than noted above. Sleep Information Total Hours of Sleep: 6.50 Meal Information Percent of Breakfast Consumed: 100 Percent of Lunch Consumed: 100 Percent of Dinner Consumed: 100 Mental Status Exam During interview pt is: alert and oriented, cooperative Appearance: appropriately dressed, appropriately groomed (Short blonde hair, glasses), appeared stated age Eye contact is: good Motor behavior is: steady gait & station, no abnormal motor movements Speech: normal in rate, rhythm & volume Affect: mood congruent, blunted Mood is: other ("up and down") Thought process: goal directed Thought content: cognitive distortions Suicidal thought are: present ("constant"), Plan: present (OD), Intent: denied (cannot contract for safety outside of hospital setting) Homicidal thoughts are: denied Hallucinations: denies auditory, denies visual Cognition: memory grossly intact, attention grossly intact, language grossly intact Intelligence estimated to be: average Insight: impaired Judgement: impaired Medication Trials Prozac- aggressive Klonopin- abused Effexor- skin burning sensation Wellbutrin- flu like symptoms Abilify- Weight gain Trazodone- N, morning hangover Impression Pt reports ongoing suicidality. She continues to endorse somatic symptoms which she relates to medication changes. Pt agreeable to discontinuation of Lamictal. Pt unable to provide feedback on benefits she is receiving during her hospitalization, but is also unable to share thoughts on what needs more focus. Pt continues to request frequent 1-on-1 counseling sessions, but feels they are "unhelpful". Pt continues to remain at risk of harm to self as she is endorsing constant suicidality and is unable to contract for safety outside of the hospital setting. Plan (1) Bipolar disorder 06/27 - Will increase Lamictal to 50 mg. If rash emerges, then DC - Seroquel 100 mg. HS to target mood. titrate as tolerated - FLP and FBS for monitoring on atypicals - Repeat UA/C&S if indicated - Family meeting - Will need psychiatric aftercare - Q 15 min checks for safety - Encourage participation in group and individual counseling - Assist the patient to learn and utilize additional healthy coping strategies - Obtain records from current provider 06/28 - Increase Seroquel to 150 mg. HS - Continue current lamictal dose - Will need a seasoned therapist. 06/29 -Increase quetiapine to 200 mg nightly. Continue lamotrigine standard dose titration. -Fasting lipid profile and glucose for baseline on an atypical antipsychotic were within normal limits. 06/30 - Continue current meds - Try to provide patient with some exercises from DBT 07/01 - Continue current medications - Encouraged to continue to monitor sore on tongue as well as development of rash elsewhere, agreeable to continuing Lamictal titration at this time - Continue to work on establishing aftercare with seasoned therapist and psychiatrist 07/02 - while I am not convinced that the very small non ulcerative lesions on her tongue are secondary to the lamictal and she shows no rash or fever, will d/c out of abundance of precaution as her discomfort persists and the lamictal will take many weeks to titrate. She can reconsider this or an alternative mood stabilizer as a therapeutic agent with her outpatient provider, but will, for now, try to utilize the seroquel. - increase Seroquel to 300mg qhs for additional mood stabilization 07/03 - Lamictal discontinued. Continue Seroquel 300mg with monitoring for side effects. (2) Neurologic abnormality 06/27 - Patient with long standing variation in pupil dilation lt>rt - Only other neuro symptoms is the burning sensations that emerged on Effexor - +family history for MS - Refer to neuro post discharge (3) Borderline personality disorder 06/29 -patient reports she has been diagnosed with borderline personality disorder, although she does not necessarily agree with the diagnosis. She has displayed traits here, including reactivity of mood, interpersonal difficulties , chronic SI, and abandonment issues. 06/30 - Support appropriate boundaries Discharge / Aftercare Planning Primary Care Physician: Name: Alisa Jaramillo PA-C ([place]) Date of Appointment: Jul 06, 2017 Time of Appointment: 8:45 a.m. Appointment Notes: [place] [address] Therapist: Name: Day Douglas Date of Appointment: Jul 04, 2017 Time of Appointment: 11:30 am Appointment Notes: [address] [place] [address] [place] [address] Supervisor Cutting Department: Name: None Neurologist: Name: [facility] Date of Appointment: July 31, 2017 Time of Appointment: 1:25 p.m. Appointment Notes: [address] [place] [id number] Visit Code E&M Code: 86962 Inventory Assets Strengths: Good support from mother, has a job Needs: To learn and utilize additional healthy coping strategies, outpatient care Risk Factors Assessment : Yes /single/: Yes Higher / Fall in social status: No Access to guns: No Health problems: No Mental Health Diagnoses: Yes Substance use disorders: No Previous attempt: Yes Family history of suicide: No Previous psychiatric stay: Yes Hopelessness: No Smoker: No Protective Factors Assessment Yarsanism beliefs: No : No Responsible for young children: No Employed: Yes Stable relationships: No Supportive family: Yes Good rapport with provider: No Data Vital Signs Last 24 Hrs: Date Time Temp Pulse Resp B/P (MAP) Pulse Ox O2 Delivery O2 Flow Rate FiO2 07/03/17 06:50 36.5 75 16 94/58 99 94/58 Meds Administered Last 24 Hrs: Meds Administered (Past 24Hrs) Medications (Trade) Dose Ordered Sig/Jay Route Start Time Stop Time Status Last Admin Dose Admin Phenol (Chloraseptic 1.4% [place]) 3 sprays Q4H PRN MT 07/02/17 12:45 08/01/17 12:44 07/03/17 11:22 3 SPRAYS Quetiapine Fumarate (seroQUEL TAB) 300 mg HS PO 07/02/17 22:00 07/28/17 21:59 07/02/17 21:46 300 MG Problem Qualifiers (1) Bipolar disorder: Active/Remission status: currently active Current bipolar episode type: depressed Current episode severity: severe Psychotic features: without psychotic features Qualified Codes: F31.4 - Bipolar disorder, current episode depressed, severe, without psychotic features
[2017-07-03] MEDS: hydrOXYzine HCL 25 MG TAB PO PRN (15:51)
[2017-07-03] MEDS: QUETIAPINE FUMARATE 300 MG TAB PO SCH (22:15)
[2017-07-04 07:00] VITALS: BP_SYST 101; BP_SYST 98; BP_DIAS 62; BP_DIAS 69; PULSE 101; PULSE 80; TEMP 36.7
--- NOTE | 2017-07-04 09:58 | Psychiatric Progress Notes ---
Progress Note Date of Service Jul 04, 2017. Interval History 26-year-old woman admitted voluntarily with severe depression and suicidality. Chief Complaint "I've been rapid cycling". Subjective Patient was seen & assessed interval progress reviewed with Treatment Team. The patient says that she has been "rapid cycling" with a mood going between a 1 and a 9. She is usually a 1 in the morning and by evening is a 9 and feeling like her thoughts are "all over the place", "able to multitask". She is tolerating the titration of Seroquel without daytime sedation and even says that she is still having trouble staying asleep during the night. She continues with SI, no different from admission. She reports feeling very irritable yesterday which is something she often feels when cycling. She was annoyed when the schedule of groups was off, and irritated by peers in the milieu. She is trying to cope by keeping her mind and her hands occupied with drawing and puzzles. Review of Systems Constitutional: No fever, No chills, No sweats, No weight loss, No weakness, No fatigue, No problem reported ENT: No hearing loss, No unusual epistaxis, No nasal symptoms, No sore throat, No tinnitus, No dental problems, No trouble swallowing, No problem reported Respiratory: No cough, No sputum, No wheezing, No shortness of breath, No dyspnea on exertion, No dyspnea at rest, No hemoptysis, No problem reported Cardiovascular: No chest pain, No orthopnea, No PND, No edema, No claudication , No palpitations, No problem reported Abdomen: No pain, No nausea, No vomiting, No diarrhea, No constipation, No GI bleeding, No problem reported Musculoskeletal: No joint pain, No muscle pain, No swelling, No calf pain, No problem reported Neurologic: No memory loss, No paralysis, No weakness, No numbness/tingling, No vertigo, No balance problems, No problem reported Psychiatric: + depression symptoms (with SI), + problem reported (diurnal mood variation) Integumentary: + problem reported (acnee eruptions) Sleep Information Total Hours of Sleep: 6.50 Meal Information Percent of Breakfast Consumed: 0 Percent of Lunch Consumed: 100 Percent of Dinner Consumed: 100 Mental Status Exam During interview pt is: alert and oriented, cooperative Appearance: appropriately dressed, disheveled, appeared stated age Eye contact is: good Motor behavior is: steady gait & station, no abnormal motor movements Speech: normal in rate, rhythm & volume Affect: mood congruent, blunted Mood is: other ("up and down") Thought process: goal directed Thought content: cognitive distortions Suicidal thought are: present ("constant"), Plan: present (OD), Intent: denied (cannot contract for safety outside of hospital setting) Homicidal thoughts are: denied Hallucinations: denies auditory, denies visual Cognition: memory grossly intact, attention grossly intact, language grossly intact Intelligence estimated to be: average Insight: impaired Judgement: impaired Medication Trials Prozac- aggressive Klonopin- abused Effexor- skin burning sensation Wellbutrin- flu like symptoms Abilify- Weight gain Trazodone- N, morning hangover Impression Lamictal DC'd in view of her concerns for physical symptoms. Seroquel titrated , last 2 days ago. this evening will add 100 mg. at 1700 to target cycling moods in the evening, and continue 300 mg HS. Still suicidal and not safe for discharge. Plan (1) Bipolar disorder 06/27 - Will increase Lamictal to 50 mg. If rash emerges, then DC - Seroquel 100 mg. HS to target mood. titrate as tolerated - FLP and FBS for monitoring on atypicals - Repeat UA/C&S if indicated - Family meeting - Will need psychiatric aftercare - Q 15 min checks for safety - Encourage participation in group and individual counseling - Assist the patient to learn and utilize additional healthy coping strategies - Obtain records from current provider 06/28 - Increase Seroquel to 150 mg. HS - Continue current lamictal dose - Will need a seasoned therapist. 06/29 -Increase quetiapine to 200 mg nightly. Continue lamotrigine standard dose titration. -Fasting lipid profile and glucose for baseline on an atypical antipsychotic were within normal limits. 06/30 - Continue current meds - Try to provide patient with some exercises from DBT 07/01 - Continue current medications - Encouraged to continue to monitor sore on tongue as well as development of rash elsewhere, agreeable to continuing Lamictal titration at this time - Continue to work on establishing aftercare with seasoned therapist and psychiatrist 07/02 - while I am not convinced that the very small non ulcerative lesions on her tongue are secondary to the lamictal and she shows no rash or fever, will d/c out of abundance of precaution as her discomfort persists and the lamictal will take many weeks to titrate. She can reconsider this or an alternative mood stabilizer as a therapeutic agent with her outpatient provider, but will, for now, try to utilize the seroquel. - increase Seroquel to 300mg qhs for additional mood stabilization 07/03 - Lamictal discontinued. Continue Seroquel 300mg with monitoring for side effects. 07/04 - Add Seroquel 100 mg. 1700 to target rapid cycling/mood elevation in the evening (2) Neurologic abnormality 06/27 - Patient with long standing variation in pupil dilation lt>rt - Only other neuro symptoms is the burning sensations that emerged on Effexor - +family history for MS - Refer to neuro post discharge (3) Borderline personality disorder 06/29 -patient reports she has been diagnosed with borderline personality disorder, although she does not necessarily agree with the diagnosis. She has displayed traits here, including reactivity of mood, interpersonal difficulties , chronic SI, and abandonment issues. 06/30 - Support appropriate boundaries Discharge / Aftercare Planning Primary Care Physician: Name: Alisa Jaramillo PA-C (Yan) Date of Appointment: Jul 06, 2017 Time of Appointment: 8:45 a.m. Appointment Notes: [address] [place] [address] Therapist: Name: Day Douglas Date of Appointment: Jul 04, 2017 Time of Appointment: 11:30 am Appointment Notes: [address] [place], [place] [id number] [id number] Tube Washer: Name: None Neurologist: Name: [facility] Date of Appointment: July 31, 2017 Time of Appointment: 1:25 p.m. Appointment Notes: [address] [place] [place] [address] Visit Code E&M Code: 53619 Inventory Assets Strengths: Good support from mother, has a job Needs: To learn and utilize additional healthy coping strategies, outpatient care Risk Factors Assessment : Yes /single/: Yes Higher / Fall in social status: No Access to guns: No Health problems: No Mental Health Diagnoses: Yes Substance use disorders: No Previous attempt: Yes Family history of suicide: No Previous psychiatric stay: Yes Hopelessness: No Smoker: No Protective Factors Assessment Zoroastrian beliefs: No : No Responsible for young children: No Employed: Yes Stable relationships: No Supportive family: Yes Good rapport with provider: No Data Vital Signs Last 24 Hrs: Date Time Temp Pulse Resp B/P (MAP) Pulse Ox O2 Delivery O2 Flow Rate FiO2 07/04/17 07:00 36.7 80 16 98/62 101 101/69 Meds Administered Last 24 Hrs: Meds Administered (Past 24Hrs) Medications (Trade) Dose Ordered Sig/Jay Route Start Time Stop Time Status Last Admin Dose Admin Phenol (Chloraseptic 1.4% [place]) 3 sprays Q4H PRN MT 07/02/17 12:45 08/01/17 12:44 07/03/17 11:22 3 SPRAYS Quetiapine Fumarate (seroQUEL TAB) 300 mg HS PO 07/02/17 22:00 07/28/17 21:59 07/03/17 22:15 300 MG Lab Results Last 24 Hrs: 06/26/17 21:00 Red Blood Count 4.66, Mean Corpuscular Volume 90.8, Mean Corpuscular Hemoglobin 31.1, Mean Corpuscular Hemoglobin Concent 34.3, Mean Platelet Volume 9.5, Neutrophils (%) (Auto) 47.6, Lymphocytes (%) (Auto) 40.8, Monocytes (%) (Auto) 10.0, Eosinophils (%) (Auto) 1.0, Basophils (%) (Auto) 0.4, Neutrophils # (Auto ) 4.97, Lymphocytes # (Auto) 4.26, Monocytes # (Auto) 1.04, Eosinophils # (Auto ) 0.10, Basophils # (Auto) 0.04 06/26/17 21:00 Test 06/26/17 21:00 06/26/17 21:08 06/26/17 22:31 06/27/17 00:00 White Blood Count 10.43 K/uL (4.8-10.8) Red Blood Count 4.66 M/uL (4.2-5.4) Hemoglobin 14.5 g/dL (12.0-16.0) Hematocrit 42.3 % (37-47) Mean Corpuscular Volume 90.8 fL (80-100) Mean Corpuscular Hemoglobin 31.1 pg (25-34) Mean Corpuscular Hemoglobin Concent 34.3 g/dl (32-36) Platelet Count 347 K/uL (130-400) Mean Platelet Volume 9.5 fL (7.4-10.4) Neutrophils (%) (Auto) 47.6 % Lymphocytes (%) (Auto) 40.8 % Monocytes (%) (Auto) 10.0 % Eosinophils (%) (Auto) 1.0 % Basophils (%) (Auto) 0.4 % Neutrophils # (Auto) 4.97 K/uL (1.4-6.5) Lymphocytes # (Auto) 4.26 K/uL (1.2-3.4) Monocytes # (Auto) 1.04 K/uL (0.11-0.59) Eosinophils # (Auto) 0.10 K/uL (0-0.5) Basophils # (Auto) 0.04 K/uL (0-0.2) RDW Standard Deviation 40.6 fL (36.4-46.3) RDW Coefficient of Variation 12.3 % (11.5-14.5) Immature Granulocyte % (Auto) 0.2 % Immature Granulocyte # (Auto) 0.02 K/uL (0.00-0.02) Anion Gap 7.0 mmol/L (3-11) Est Creatinine Clear Calc Drug Dose 92.1 ml/min Estimated GFR () 140.5 Estimated GFR (Non- 121.3 BUN/Creatinine Ratio 10.9 (10-20) Calcium Level 8.9 mg/dl (8.5-10.1) Magnesium Level 2.3 mg/dl (1.8-2.4) Total Bilirubin 0.4 mg/dl (0.2-1) Direct Bilirubin 0.1 mg/dl (0-0.2) Aspartate Amino Transf (AST/SGOT) 10 U/L (15-37) Alanine Aminotransferase (ALT/SGPT) 14 U/L (12-78) Alkaline Phosphatase 82 U/L (45-117) Total Protein 7.3 gm/dl (6.4-8.2) Albumin 4.5 gm/dl (3.4-5.0) Thyroid Stimulating Hormone (TSH) 1.880 uIu/ml (0.300-4.500) Salicylates Level < 1.7 mg/dl (2.8-20) Acetaminophen Level < 2 ug/ml (10-30) Ethyl Alcohol mg/dL < 3.0 mg/dl (0-3) Urine Mucus PRESENT (NONE PRSENT) Urine Test NEG (NEG) Urine Opiates Screen NEG (NEG) Urine Methadone, Qualitative NEG (NEG) Urine Barbiturates NEG (NEG) Urine Phencyclidine (PCP) Level NEG (NEG) Ur Amphetamine/Methamphetamine NEG (NEG) MDMA (Ecstasy) Screen NEG (NEG) Urine Benzodiazepines Screen NEG (NEG) Urine Cocaine Metabolite NEG (NEG) Urine Marijuana (THC) NEG (NEG) Bedside Glucose 84 mg/dl (70-90) Urine Color YELLOW Urine Appearance CLEAR (CLEAR) Urine pH 7.5 (4.5-7.5) Urine Specific [place] 1.011 (1.000-1.030) Urine Protein NEG (NEG) Urine Glucose (UA) NEG (NEG) Urine Ketones NEG (NEG) Urine Occult Blood NEG (NEG) Urine Nitrite NEG (NEG) Urine Bilirubin NEG (NEG) Urine Urobilinogen NEG (NEG) Urine Leukocyte Esterase TRACE (NEG) Urine WBC (Auto) 1-5 /hpf (0-5) Urine RBC (Auto) 0-4 /hpf (0-4) Urine Hyaline Casts (Auto) 0 /lpf (0-5) Urine Epithelial Cells (Auto) 5-10 /lpf (0-5) Urine Bacteria (Auto) NEG (NEG) Test 06/28/17 06:58 Fasting Glucose 94 mg/dl (70-99) Triglycerides Level 70 mg/dl (0-150) Cholesterol Level 109 mg/dl (0-200) HDL Cholesterol 42 mg/dl LDL Cholesterol, Calculated 53 mg/dl VLDL Cholesterol, Calculated 14 mg/dl Cholesterol/HDL Ratio 2.6 Problem Qualifiers (1) Bipolar disorder: Active/Remission status: currently active Current bipolar episode type: depressed Current episode severity: severe Psychotic features: without psychotic features Qualified Codes: F31.4 - Bipolar disorder, current episode depressed, severe, without psychotic features
[2017-07-04] MEDS ORDERED: QUETIAPINE FUMARATE 100 MG TAB PO SCH (17:30)
[2017-07-04] MEDS: ALUMINUM/MAGNESIUM SUSP 30 ML UDC PO PRN (17:39)
[2017-07-04] MEDS: QUETIAPINE FUMARATE 300 MG TAB PO SCH (21:23)
[2017-07-05 06:55] VITALS: BP_SYST 94; BP_SYST 97; BP_DIAS 62; PULSE 76; PULSE 91; TEMP 36.9
--- NOTE | 2017-07-05 10:35 | Psychiatric Progress Notes ---
Progress Note Date of Service Jul 05, 2017. Interval History 26-year-old woman admitted voluntarily with severe depression and suicidality. Chief Complaint "I'm swinging like crazy". Subjective Patient was seen & assessed interval progress reviewed with Treatment Team. Staff report the patient continues to endorse mood swings and suicidal ideation. 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 Despite feeling "spacey," she was able to attend all unit programming. The social insurance specialist spoke with her mother, who will talk to the patient's father about canceling her [place] insurance, which is preventing her from seeing [place] providers. Her mother also stated that she will need a new PCP. On assessment today, Lina states that her moods are "swinging like crazy, and the sensation of burning in my skin are back." She describes low mood in the morning, rates it a 1 out of 10, and says that "swings up" to an 8 out of 10 by the evening. She says she has "typical ainsley, racing thoughts, speaking fast, disorganized thoughts, losing my train of thought a lot, irritability, everything gets on my nerves, hypersensitivity." She feels her mood symptoms have been worsening over the past couple of days, and says she could not tolerate the 100 mg dose of quetiapine in the evening. She continues to endorse suicidal thoughts, says "they are still there, it makes sense to me." She says suicidal thoughts are worse, as they are more frequent. She denies any exacerbating factors. She does not feel safe outside the hospital, and says that she "probably" will not try to hurt herself in the hospital, as "I am being watched too close." She agrees to go to staff if she feels unsafe. She had poor appetite yesterday, but it was improved this morning. Sleep was disrupted, fell asleep easily, but woke up every 30 minutes for a couple of minutes. She states that her tongue is feeling better, but skin feels like it is burning, and she is breaking out all over her body, which she attributes to sensitive skin and exposure to Hospital detergent. She denies that her skin lesions are itchy or painful. Review of Systems + Acne, burning sensation on skin; no nausea Sleep Information Total Hours of Sleep: 6.50 Meal Information Percent of Breakfast Consumed: 0 Percent of Lunch Consumed: 50 Percent of Dinner Consumed: 75 Mental Status Exam During interview pt is: alert and oriented, cooperative Appearance: appropriately dressed, disheveled (Short blonde hair, unkempt), appeared stated age, other (Acne on face and chest, wearing glasses) Eye contact is: good Motor behavior is: steady gait & station, no abnormal motor movements Speech: normal in rate, rhythm & volume Affect: blunted, other (Incongruent with stated mood of "typical ainsley") Mood is: other ("I am swinging like crazy") Thought process: goal directed Thought content: cognitive distortions Suicidal thought are: present ("constant"), Plan: present (OD), Intent: denied (cannot contract for safety outside of hospital setting) Homicidal thoughts are: denied Hallucinations: denies auditory, denies visual Cognition: memory grossly intact, attention grossly intact, language grossly intact Intelligence estimated to be: average Insight: impaired Judgement: impaired Medication Trials Prozac- aggressive Klonopin- abused Effexor- skin burning sensation Wellbutrin- flu like symptoms Abilify- Weight gain Trazodone- N, morning hangover Lamotrigine -tongue pain Impression Lamictal DC'd in view of her concerns for tongue symptoms. Seroquel is being titrated, and will be consolidated to bedtime she could not tolerate the evening dose, feeling oversedated. We will also add a low dose as needed for use during the day for irritability. Still suicidal and not safe for discharge. Plan (1) Bipolar disorder 06/27 - Will increase Lamictal to 50 mg. If rash emerges, then DC - Seroquel 100 mg. HS to target mood. titrate as tolerated - FLP and FBS for monitoring on atypicals - Repeat UA/C&S if indicated - Family meeting - Will need psychiatric aftercare - Q 15 min checks for safety - Encourage participation in group and individual counseling - Assist the patient to learn and utilize additional healthy coping strategies - Obtain records from current provider 06/28 - Increase Seroquel to 150 mg. HS - Continue current lamictal dose - Will need a seasoned therapist. 06/29 -Increase quetiapine to 200 mg nightly. Continue lamotrigine standard dose titration. -Fasting lipid profile and glucose for baseline on an atypical antipsychotic were within normal limits. 06/30 - Continue current meds - Try to provide patient with some exercises from DBT 07/01 - Continue current medications - Encouraged to continue to monitor sore on tongue as well as development of rash elsewhere, agreeable to continuing Lamictal titration at this time - Continue to work on establishing aftercare with seasoned therapist and psychiatrist 07/02 - while I am not convinced that the very small non ulcerative lesions on her tongue are secondary to the lamictal and she shows no rash or fever, will d/c out of abundance of precaution as her discomfort persists and the lamictal will take many weeks to titrate. She can reconsider this or an alternative mood stabilizer as a therapeutic agent with her outpatient provider, but will, for now, try to utilize the seroquel. - increase Seroquel to 300mg qhs for additional mood stabilization 07/03 - Lamictal discontinued. Continue Seroquel 300mg with monitoring for side effects. 07/04 - Add Seroquel 100 mg. 1700 to target rapid cycling/mood elevation in the evening 07/05 -Consolidate quetiapine 400 mg at bedtime, and add 25 mg every 4 hours as needed dose for irritability/anxiety/suicidality. -Patient states her tongue is feeling better, and is unwilling to retrial lamotrigine. Remaining options if quetiapine is ultimately ineffective for mood instability include risperidone, olanzapine, lithium, valproate, haloperidol, carbamazepine, or gabapentin off label. (2) Neurologic abnormality 06/27 - Patient with long standing variation in pupil dilation lt>rt - Only other neuro symptoms is the burning sensations that emerged on Effexor - +family history for MS - Refer to neuro post discharge (3) Borderline personality disorder 06/29 -patient reports she has been diagnosed with borderline personality disorder, although she does not necessarily agree with the diagnosis. She has displayed traits here, including reactivity of mood, interpersonal difficulties , chronic SI, and abandonment issues. 06/30 - Support appropriate boundaries Discharge / Aftercare Planning Primary Care Physician: Name: Dr. Naresh Anderson Date of Appointment: July 17, 2017 Time of Appointment: 9:00 a.m. Appointment Notes: [address], [place] [address] Therapist: Name: Day Douglas Date of Appointment: Jul 10, 2017 Time of Appointment: 3pm Appointment Notes: [address] [facility] [place], [place] [address] Prison Librarian: Name: Rosi Graves BSU - fax referral sent over on 07/04 Appointment Notes: [address] [facility], [address], [place] Neurologist: Name: [facility] Date of Appointment: July 31, 2017 Time of Appointment: 1:25 p.m. Appointment Notes: [address] [employer], [place] [address] Visit Code E&M Code: 22316 Inventory Assets Strengths: Good support from mother, has a job Needs: To learn and utilize additional healthy coping strategies, outpatient care Risk Factors Assessment : Yes /single/: Yes Higher / Fall in social status: No Access to guns: No Health problems: No Mental Health Diagnoses: Yes Substance use disorders: No Previous attempt: Yes Family history of suicide: No Previous psychiatric stay: Yes Hopelessness: No Smoker: No Protective Factors Assessment Cheondoism beliefs: No : No Responsible for young children: No Employed: Yes Stable relationships: No Supportive family: Yes Good rapport with provider: No Data Vital Signs Last 24 Hrs: Date Time Temp Pulse Resp B/P (MAP) Pulse Ox O2 Delivery O2 Flow Rate FiO2 07/05/17 06:55 36.9 76 16 97/62 91 94/62 Meds Administered Last 24 Hrs: Meds Administered (Past 24Hrs) Medications (Trade) Dose Ordered Sig/Jay Route Start Time Stop Time Status Last Admin Dose Admin Quetiapine Fumarate (seroQUEL TAB) 100 mg DAILY@1730 PO 07/04/17 17:30 07/05/17 10:16 DC 07/04/17 17:24 100 MG Problem Qualifiers (1) Bipolar disorder: Active/Remission status: currently active Current bipolar episode type: depressed Current episode severity: severe Psychotic features: without psychotic features Qualified Codes: F31.4 - Bipolar disorder, current episode depressed, severe, without psychotic features
[2017-07-05] MEDS: QUETIAPINE FUMARATE 25 MG TAB PO PRN ×2 (13:56→18:14)
[2017-07-05] MEDS: QUETIAPINE FUMARATE 200 MG TAB PO SCH (21:57)
[2017-07-05] MEDS: hydrOXYzine HCL 25 MG TAB PO PRN (21:58)
[2017-07-06 06:38] VITALS: BP_SYST 95; BP_SYST 96; BP_DIAS 58; BP_DIAS 60; PULSE 79; PULSE 87; TEMP 36.8
--- NOTE | 2017-07-06 12:26 | Psychiatric Progress Notes ---
Progress Note Date of Service Jul 06, 2017. Interval History 26-year-old woman admitted voluntarily with severe depression and suicidality. Chief Complaint "I'm pretty sure it (the seroquel prn) made me manic.". Subjective Patient was seen & assessed interval progress reviewed with Treatment Team. Reports taking 2 doses of seroquel prn, the first making her tired and spacey and the second making her feel "manic" with euphoria, talking fast. Today she started her day rating her mood 9/10 and now its 1/10, feeling "mixed" with depressive thought, feeling guilty, crying and agitation. She describes that when she is manic her thoughts are fast, but she completes her thoughts. When she is mixed, she feels like she can't finish a thought. She continues to have SI, and not safe for discharge. He mother has been visiting and bringing her small food snacks. She says that she would like to try lithium as it was suggested to her previously and thinks "its worth a try". Review of Systems Constitutional: + fatigue ENT: No hearing loss, No unusual epistaxis, No nasal symptoms, No sore throat, No tinnitus, No dental problems, No trouble swallowing, No problem reported Respiratory: No cough, No sputum, No wheezing, No shortness of breath, No dyspnea on exertion, No dyspnea at rest, No hemoptysis, No problem reported Cardiovascular: No chest pain, No orthopnea, No PND, No edema, No claudication , No palpitations, No problem reported Abdomen: No pain, No nausea, No vomiting, No diarrhea, No constipation, No GI bleeding, No problem reported Musculoskeletal: No joint pain, No muscle pain, No swelling, No calf pain, No problem reported Neurologic: No memory loss, No paralysis, No weakness, No numbness/tingling, No vertigo, No balance problems, No problem reported Psychiatric: + depression symptoms, + problem reported (feeling manic last night) Integumentary: + problem reported (irregular skin, with eruptions) Sleep Information Total Hours of Sleep: 7.25 Meal Information Percent of Breakfast Consumed: 100 Percent of Lunch Consumed: 100 Percent of Dinner Consumed: 100 Mental Status Exam During interview pt is: alert and oriented, cooperative Appearance: appropriately dressed, appropriately groomed, appeared stated age, other (Acne on face and chest, wearing glasses) Eye contact is: good Motor behavior is: steady gait & station, no abnormal motor movements Speech: normal in rate, rhythm & volume Affect: blunted, euthymic Mood is: other ("mixed") Thought process: goal directed Thought content: cognitive distortions, reality based without delusions Suicidal thought are: present ("constant"), Plan: present (OD), Intent: denied (cannot contract for safety outside of hospital setting) Homicidal thoughts are: denied Hallucinations: denies auditory, denies visual Cognition: memory grossly intact, attention grossly intact, language grossly intact Intelligence estimated to be: average Insight: impaired Judgement: impaired Medication Trials Prozac- aggressive Klonopin- abused Effexor- skin burning sensation Wellbutrin- flu like symptoms Abilify- Weight gain Trazodone- N, morning hangover Lamotrigine -tongue pain Impression Doesn't feel like the Seroquel is stablizing her moods, thinking the prn dose even caused her to feel manic. She seems to report mixed symptoms during the day and manic symptoms at night. Is still suicidal. Will trial lithium, loading tonight with 600-300-600 mg at [id number] with level in the AM. R/B /A reviewed and accepted, including the need for levels, cardiac side effects, weight gain. Will continue Seroquel for now. EKG for baseline. Plan (1) Bipolar disorder 06/27 - Will increase Lamictal to 50 mg. If rash emerges, then DC - Seroquel 100 mg. HS to target mood. titrate as tolerated - FLP and FBS for monitoring on atypicals - Repeat UA/C&S if indicated - Family meeting - Will need psychiatric aftercare - Q 15 min checks for safety - Encourage participation in group and individual counseling - Assist the patient to learn and utilize additional healthy coping strategies - Obtain records from current provider 06/28 - Increase Seroquel to 150 mg. HS - Continue current lamictal dose - Will need a seasoned therapist. 06/29 -Increase quetiapine to 200 mg nightly. Continue lamotrigine standard dose titration. -Fasting lipid profile and glucose for baseline on an atypical antipsychotic were within normal limits. 06/30 - Continue current meds - Try to provide patient with some exercises from DBT 07/01 - Continue current medications - Encouraged to continue to monitor sore on tongue as well as development of rash elsewhere, agreeable to continuing Lamictal titration at this time - Continue to work on establishing aftercare with seasoned therapist and psychiatrist 07/02 - while I am not convinced that the very small non ulcerative lesions on her tongue are secondary to the lamictal and she shows no rash or fever, will d/c out of abundance of precaution as her discomfort persists and the lamictal will take many weeks to titrate. She can reconsider this or an alternative mood stabilizer as a therapeutic agent with her outpatient provider, but will, for now, try to utilize the seroquel. - increase Seroquel to 300mg qhs for additional mood stabilization 07/03 - Lamictal discontinued. Continue Seroquel 300mg with monitoring for side effects. 07/04 - Add Seroquel 100 mg. 1700 to target rapid cycling/mood elevation in the evening 07/05 -Consolidate quetiapine 400 mg at bedtime, and add 25 mg every 4 hours as needed dose for irritability/anxiety/suicidality. -Patient states her tongue is feeling better, and is unwilling to retrial lamotrigine. Remaining options if quetiapine is ultimately ineffective for mood instability include risperidone, olanzapine, lithium, valproate, haloperidol, carbamazepine, or gabapentin off label. 07/06 - Trial lithobid, loading with 600-300-600 at [id number] tonight, with level in the AM - Baseline EKG - Continue Seroquel (2) Neurologic abnormality 06/27 - Patient with long standing variation in pupil dilation lt>rt - Only other neuro symptoms is the burning sensations that emerged on Effexor - +family history for MS - Refer to neuro post discharge (3) Borderline personality disorder 06/29 -patient reports she has been diagnosed with borderline personality disorder, although she does not necessarily agree with the diagnosis. She has displayed traits here, including reactivity of mood, interpersonal difficulties , chronic SI, and abandonment issues. 06/30 - Support appropriate boundaries Discharge / Aftercare Planning Primary Care Physician: Name: Dr. Naresh Anderson Date of Appointment: July 17, 2017 Time of Appointment: 9:00 a.m. Appointment Notes: [address], [place] [address] Therapist: Name: Protestant Misael Date of Appointment: Jul 10, 2017 Time of Appointment: 3pm Appointment Notes: [address] [facility] [place] [address] Vamp Marker: Name: Misty Rae [facility] Date of Appointment: July 14, 2017 Time of Appointment: 8:30am Appointment Notes: [address], [address], [place] Neurologist: Name: [facility] Date of Appointment: July 31, 2017 Time of Appointment: 1:25 p.m. Appointment Notes: [address], [place], [place] [address] Visit Code E&M Code: 05730 Inventory Assets Strengths: Good support from mother, has a job Needs: To learn and utilize additional healthy coping strategies, outpatient care Risk Factors Assessment : Yes /single/: Yes Higher / Fall in social status: No Access to guns: No Health problems: No Mental Health Diagnoses: Yes Substance use disorders: No Previous attempt: Yes Family history of suicide: No Previous psychiatric stay: Yes Hopelessness: No Smoker: No Protective Factors Assessment Jehovah'S Witness beliefs: No : No Responsible for young children: No Employed: Yes Stable relationships: No Supportive family: Yes Good rapport with provider: No Data Vital Signs Last 24 Hrs: Date Time Temp Pulse Resp B/P (MAP) Pulse Ox O2 Delivery O2 Flow Rate FiO2 07/06/17 06:38 36.8 79 16 95/58 87 96/60 Meds Administered Last 24 Hrs: Meds Administered (Past 24Hrs) Medications (Trade) Dose Ordered Sig/Jay Route Start Time Stop Time Status Last Admin Dose Admin Quetiapine Fumarate (seroQUEL TAB) 100 mg DAILY@1730 PO 07/04/17 17:30 07/05/17 10:16 DC 07/04/17 17:24 100 MG Quetiapine Fumarate (seroQUEL TAB) 400 mg HS PO 07/05/17 22:00 07/28/17 21:59 07/05/17 21:57 400 MG Quetiapine Fumarate (seroQUEL TAB) 25 mg Q4 PRN PO 07/05/17 10:15 08/04/17 10:14 07/05/17 18:14 25 MG Lab Results Last 24 Hrs: 06/26/17 21:00 Red Blood Count 4.66, Mean Corpuscular Volume 90.8, Mean Corpuscular Hemoglobin 31.1, Mean Corpuscular Hemoglobin Concent 34.3, Mean Platelet Volume 9.5, Neutrophils (%) (Auto) 47.6, Lymphocytes (%) (Auto) 40.8, Monocytes (%) (Auto) 10.0, Eosinophils (%) (Auto) 1.0, Basophils (%) (Auto) 0.4, Neutrophils # (Auto ) 4.97, Lymphocytes # (Auto) 4.26, Monocytes # (Auto) 1.04, Eosinophils # (Auto ) 0.10, Basophils # (Auto) 0.04 06/26/17 21:00 Test 06/26/17 21:00 06/26/17 21:08 06/26/17 22:31 06/27/17 00:00 White Blood Count 10.43 K/uL (4.8-10.8) Red Blood Count 4.66 M/uL (4.2-5.4) Hemoglobin 14.5 g/dL (12.0-16.0) Hematocrit 42.3 % (37-47) Mean Corpuscular Volume 90.8 fL (80-100) Mean Corpuscular Hemoglobin 31.1 pg (25-34) Mean Corpuscular Hemoglobin Concent 34.3 g/dl (32-36) Platelet Count 347 K/uL (130-400) Mean Platelet Volume 9.5 fL (7.4-10.4) Neutrophils (%) (Auto) 47.6 % Lymphocytes (%) (Auto) 40.8 % Monocytes (%) (Auto) 10.0 % Eosinophils (%) (Auto) 1.0 % Basophils (%) (Auto) 0.4 % Neutrophils # (Auto) 4.97 K/uL (1.4-6.5) Lymphocytes # (Auto) 4.26 K/uL (1.2-3.4) Monocytes # (Auto) 1.04 K/uL (0.11-0.59) Eosinophils # (Auto) 0.10 K/uL (0-0.5) Basophils # (Auto) 0.04 K/uL (0-0.2) RDW Standard Deviation 40.6 fL (36.4-46.3) RDW Coefficient of Variation 12.3 % (11.5-14.5) Immature Granulocyte % (Auto) 0.2 % Immature Granulocyte # (Auto) 0.02 K/uL (0.00-0.02) Anion Gap 7.0 mmol/L (3-11) Est Creatinine Clear Calc Drug Dose 92.1 ml/min Estimated GFR () 140.5 Estimated GFR (Non- 121.3 BUN/Creatinine Ratio 10.9 (10-20) Calcium Level 8.9 mg/dl (8.5-10.1) Magnesium Level 2.3 mg/dl (1.8-2.4) Total Bilirubin 0.4 mg/dl (0.2-1) Direct Bilirubin 0.1 mg/dl (0-0.2) Aspartate Amino Transf (AST/SGOT) 10 U/L (15-37) Alanine Aminotransferase (ALT/SGPT) 14 U/L (12-78) Alkaline Phosphatase 82 U/L (45-117) Total Protein 7.3 gm/dl (6.4-8.2) Albumin 4.5 gm/dl (3.4-5.0) Thyroid Stimulating Hormone (TSH) 1.880 uIu/ml (0.300-4.500) Salicylates Level < 1.7 mg/dl (2.8-20) Acetaminophen Level < 2 ug/ml (10-30) Ethyl Alcohol mg/dL < 3.0 mg/dl (0-3) Urine Mucus PRESENT (NONE PRSENT) Urine Test NEG (NEG) Urine Opiates Screen NEG (NEG) Urine Methadone, Qualitative NEG (NEG) Urine Barbiturates NEG (NEG) Urine Phencyclidine (PCP) Level NEG (NEG) Ur Amphetamine/Methamphetamine NEG (NEG) MDMA (Ecstasy) Screen NEG (NEG) Urine Benzodiazepines Screen NEG (NEG) Urine Cocaine Metabolite NEG (NEG) Urine Marijuana (THC) NEG (NEG) Bedside Glucose 84 mg/dl (70-90) Urine Color YELLOW Urine Appearance CLEAR (CLEAR) Urine pH 7.5 (4.5-7.5) Urine Specific [place] 1.011 (1.000-1.030) Urine Protein NEG (NEG) Urine Glucose (UA) NEG (NEG) Urine Ketones NEG (NEG) Urine Occult Blood NEG (NEG) Urine Nitrite NEG (NEG) Urine Bilirubin NEG (NEG) Urine Urobilinogen NEG (NEG) Urine Leukocyte Esterase TRACE (NEG) Urine WBC (Auto) 1-5 /hpf (0-5) Urine RBC (Auto) 0-4 /hpf (0-4) Urine Hyaline Casts (Auto) 0 /lpf (0-5) Urine Epithelial Cells (Auto) 5-10 /lpf (0-5) Urine Bacteria (Auto) NEG (NEG) Test 06/28/17 06:58 Fasting Glucose 94 mg/dl (70-99) Triglycerides Level 70 mg/dl (0-150) Cholesterol Level 109 mg/dl (0-200) HDL Cholesterol 42 mg/dl LDL Cholesterol, Calculated 53 mg/dl VLDL Cholesterol, Calculated 14 mg/dl Cholesterol/HDL Ratio 2.6 Problem Qualifiers (1) Bipolar disorder: Active/Remission status: currently active Current bipolar episode type: depressed Current episode severity: severe Psychotic features: without psychotic features Qualified Codes: F31.4 - Bipolar disorder, current episode depressed, severe, without psychotic features
[2017-07-06] MEDS: LITHIUM CARBONATE SR 300 MG TAB (LITHOBID) PO SCH ×2 (16:00→20:51)
[2017-07-06] MEDS ORDERED: LITHIUM CARBONATE SR 300 MG TAB (LITHOBID) PO SCH (18:00)
[2017-07-06] MEDS: QUETIAPINE FUMARATE 200 MG TAB PO SCH (20:52)
[2017-07-07 06:56] VITALS: BP_SYST 101; BP_SYST 91; BP_DIAS 59; BP_DIAS 66; PULSE 103; PULSE 92; TEMP 36.8
--- NOTE | 2017-07-07 09:57 | Psych Management Progress Note ---
Psychiatry Miscellaneous Date of Service: Jul 07, 2017. Patient seen, MS assessed. Rates mood as 7/10 and "content". Tolerating lithium loading. Level today 1.0. Encouraged cooperation with care and treatment plan as outlined by allied health prescriber.
--- NOTE | 2017-07-07 10:00 | Psychiatric Progress Notes ---
Progress Note Date of Service Jul 07, 2017. Interval History 26-year-old woman admitted voluntarily with severe depression and suicidality. Chief Complaint "I think I'm feeling better than I've felt since I've been in here". Subjective Patient was seen & assessed interval progress reviewed with Treatment Team. Staff reports the patient continues to report SI. Pt was lithium loaded last evening. Patient today to assess progress since admission. Patient states she has been pleased with her response to the lithium thus far. She denies side effects with the lithium loading. Patient is pleased to report she has not noticed her mood fluctuations yet this morning. She states her sleep has progressively worsened since admission, feeling this is due to Seroquel. Patient states she feels as needed dosing "caused me to be manic." Patient reports ongoing suicidal thoughts but states, "I feel more comfortable in my skin." She reports, "I feel like I'm in a better mindset to start challenging those thoughts." Patient is interested in continuing maintenance with lithium. She denies other concerns this morning. Review of Systems Psych: denies symptoms other than stated above Constitutional: reports ongoing difficulty sleeping Cardiovascular: denied GI: denied Neurologic: denied Remainder of 10 body systems also reviewed and denied other than noted above. Sleep Information Total Hours of Sleep: 8.00 Meal Information Percent of Breakfast Consumed: 100 Percent of Lunch Consumed: 100 Percent of Dinner Consumed: 100 Mental Status Exam During interview pt is: alert and oriented, cooperative Appearance: appropriately dressed, appropriately groomed, appeared stated age, other (Acne on face and chest, wearing glasses) Eye contact is: good Motor behavior is: steady gait & station, no abnormal motor movements, other ( relaxed) Speech: normal in rate, rhythm & volume Affect: euthymic Mood is: other ("really good") Thought process: goal directed, clear, coherent Thought content: reality based without delusions Suicidal thought are: present (ongoing since admission), Plan: present (OD), Intent: denied (cannot contract for safety outside of hospital setting) Homicidal thoughts are: denied Hallucinations: denies auditory, denies visual Cognition: memory grossly intact, attention grossly intact, language grossly intact Intelligence estimated to be: average Insight: impaired Judgement: impaired Medication Trials Prozac- aggressive Klonopin- abused Effexor- skin burning sensation Wellbutrin- flu like symptoms Abilify- Weight gain Trazodone- N, morning hangover Lamotrigine -tongue pain Impression Pt reports noticeable improvement in mood so far this morning. Denies side effects from lithium loading. Lawrence level = 1.0. Discussed need for maintenance dose, recommend 900mg qHS with lithium level rechecked in 5 days. Pt verbalized understanding and agreed. Will continue Seroquel at current dose for now to ensure stability prior to tapering. Pt remains somatic with reports of worsening acne and sleep since admission - feeling medications are to blame. Additional education provided. EKG prior to lithium initiation reviewed, showed NSR with QTc = 418. Pt reports ongoing suicidality but feels she is reaching a mindset where she will be more able to challenge those thoughts. Recommend ongoing inpatient mental health treatment as medication adjustments are ongoing and patient remains unable to contract for safety outside of the hospital setting.= Plan (1) Bipolar disorder 06/27 - Will increase Lamictal to 50 mg. If rash emerges, then DC - Seroquel 100 mg. HS to target mood. titrate as tolerated - FLP and FBS for monitoring on atypicals - Repeat UA/C&S if indicated - Family meeting - Will need psychiatric aftercare - Q 15 min checks for safety - Encourage participation in group and individual counseling - Assist the patient to learn and utilize additional healthy coping strategies - Obtain records from current provider 06/28 - Increase Seroquel to 150 mg. HS - Continue current lamictal dose - Will need a seasoned therapist. 06/29 -Increase quetiapine to 200 mg nightly. Continue lamotrigine standard dose titration. -Fasting lipid profile and glucose for baseline on an atypical antipsychotic were within normal limits. 06/30 - Continue current meds - Try to provide patient with some exercises from DBT 07/01 - Continue current medications - Encouraged to continue to monitor sore on tongue as well as development of rash elsewhere, agreeable to continuing Lamictal titration at this time - Continue to work on establishing aftercare with seasoned therapist and psychiatrist 07/02 - while I am not convinced that the very small non ulcerative lesions on her tongue are secondary to the lamictal and she shows no rash or fever, will d/c out of abundance of precaution as her discomfort persists and the lamictal will take many weeks to titrate. She can reconsider this or an alternative mood stabilizer as a therapeutic agent with her outpatient provider, but will, for now, try to utilize the seroquel. - increase Seroquel to 300mg qhs for additional mood stabilization 07/03 - Lamictal discontinued. Continue Seroquel 300mg with monitoring for side effects. 07/04 - Add Seroquel 100 mg. 1700 to target rapid cycling/mood elevation in the evening 07/05 -Consolidate quetiapine 400 mg at bedtime, and add 25 mg every 4 hours as needed dose for irritability/anxiety/suicidality. -Patient states her tongue is feeling better, and is unwilling to retrial lamotrigine. Remaining options if quetiapine is ultimately ineffective for mood instability include risperidone, olanzapine, lithium, valproate, haloperidol, carbamazepine, or gabapentin off label. 07/06 - Trial lithobid, loading with 600-300-600 at [phone] tonight, with level in the AM - Baseline EKG - Continue Seroquel 07/07 - Lithobid 900mg qHS ordered, reviewed signs of toxicity. Ordered level to be checked in 5 days. - Continue Seroquel, can begin taper once stability reported on lithium dose - Lawrence level post-loading = 1.0 - EKG - NSR, QTc = 418 - Work with patient's improved mindset to continue to challenge SI and foster healthy coping skills (2) Neurologic abnormality 06/27 - Patient with long standing variation in pupil dilation lt>rt - Only other neuro symptoms is the burning sensations that emerged on Effexor - +family history for MS - Refer to neuro post discharge (3) Borderline personality disorder 06/29 -patient reports she has been diagnosed with borderline personality disorder, although she does not necessarily agree with the diagnosis. She has displayed traits here, including reactivity of mood, interpersonal difficulties , chronic SI, and abandonment issues. 06/30 - Support appropriate boundaries 07/07 - Work with patient's improved mindset to challenge SI as able, while supporting appropriate boundaries. Discharge / Aftercare Planning Primary Care Physician: Name: Dr. Naresh Anderson Date of Appointment: July 17, 2017 Time of Appointment: 9:00 a.m. Appointment Notes: [address], [place] [address] Therapist: Name: Zoroastrianism Misael Date of Appointment: Jul 10, 2017 Time of Appointment: 3pm Appointment Notes: [address] [facility], [place] [address] Yard Associate: Name: Misty Graves [facility] Date of Appointment: July 14, 2017 Time of Appointment: 8:30am Appointment Notes: [address], [address], [place] Neurologist: Name: [facility] Date of Appointment: July 31, 2017 Time of Appointment: 1:25 p.m. Appointment Notes: [address], [place], [place] [address] Visit Code E&M Code: 28208 Inventory Assets Strengths: Good support from mother, has a job Needs: To learn and utilize additional healthy coping strategies, outpatient care Risk Factors Assessment : Yes /single/: Yes Higher / Fall in social status: No Access to guns: No Health problems: No Mental Health Diagnoses: Yes Substance use disorders: No Previous attempt: Yes Family history of suicide: No Previous psychiatric stay: Yes Hopelessness: No Smoker: No Protective Factors Assessment Worship beliefs: No : No Responsible for young children: No Employed: Yes Stable relationships: No Supportive family: Yes Good rapport with provider: No Data Vital Signs Last 24 Hrs: Date Time Temp Pulse Resp B/P (MAP) Pulse Ox O2 Delivery O2 Flow Rate FiO2 07/07/17 06:56 36.8 92 14 101/66 103 91/59 Meds Administered Last 24 Hrs: Meds Administered (Past 24Hrs) Medications (Trade) Dose Ordered Sig/Jay Route Start Time Stop Time Status Last Admin Dose Admin Quetiapine Fumarate (seroQUEL TAB) 400 mg HS PO 07/05/17 22:00 07/28/17 21:59 07/06/17 20:52 400 MG Quetiapine Fumarate (seroQUEL TAB) 25 mg Q4 PRN PO 07/05/17 10:15 08/04/17 10:14 07/05/17 18:14 25 MG Lawrence Carbonate (Lithobid Tab) 600 mg TODAY@1600,2000 PO 07/06/17 16:00 07/06/17 22:00 DC 07/06/17 20:51 600 MG Lawrence Carbonate (Lithobid Tab) 300 mg TODAY@1800 PO 07/06/17 18:00 07/06/17 19:00 DC 07/06/17 18:08 300 MG Lab Results Last 24 Hrs: Last 24 Hours Test 07/07/17 08:15 Lawrence Level 1.0 mMOL/L Problem Qualifiers (1) Bipolar disorder: Active/Remission status: currently active Current bipolar episode type: depressed Current episode severity: severe Psychotic features: without psychotic features Qualified Codes: F31.4 - Bipolar disorder, current episode depressed, severe, without psychotic features
[2017-07-07] MEDS: QUETIAPINE FUMARATE 200 MG TAB PO SCH (21:21)
[2017-07-07] MEDS: LITHIUM CARBONATE SR 300 MG TAB (LITHOBID) PO SCH (21:23)
[2017-07-08 07:00] VITALS: BP_SYST 100; BP_SYST 98; BP_DIAS 63; PULSE 82; PULSE 92; TEMP 36.8
--- NOTE | 2017-07-08 11:03 | Psychiatric Progress Notes ---
Progress Note Date of Service Jul 08, 2017. Interval History 26-year-old woman admitted voluntarily with severe depression and suicidality. Chief Complaint I'm good". Subjective Patient was seen & assessed.Interval progress reviewed with Treatment Team. The patient was evaluated today and presented as calm and cooperative. She describes her mood as "I'm good" and rates her mood a 6/10. She states the Speed addition was a "life savor" in the context that it has controlled her mood to "even" though she continues to report suicidal ideation with paln to overdose as soon as she gets out of the [facility] via the use of "Tylenol and Benadryl in combo". She feels she is ready to be discharged in some ways as her mood "even" but still feels she is a danger to herself. She describes mild anxiety but notes it is tolerable. She is eating and going to groups "to learn how to cope with trying to kill myself". She details prior attempts and one prior ER visit for "cutting her wrist" due to "Buspar" in September 2016 which necessitated an ER visit but no admission. She reports " I did not cut deep enough to be admitted and beds were not available". She is rather cavalier about her SA and also her [facility] stay in March 2017. She also feels that Effexor caused her to destroy her life as she acted badly while on it and because of these behaviors her fiance and friends abandoned her. She states her "reputation" has also been destroyed in her hometown and therefor she cannot return. When asked where she did not answer. She denies HI plan or intent. She denies ainsley, hypomania or psychosis symptoms. She is eating well. She reports sleeping 3-4 hrs and is "exhausted" though records state she slept peacefully and for several hours. She reports 15 ANDREW episodes and DFA of 1-2 hrs. She wants off the Seroquel because she feels she cannot sleep because of it. Review of Systems Psych: denies symptoms other than stated above Constitutional: denied Cardiovascular: [denied] GI: denied Neurologic: denied Remainder of 10 body systems also reviewed and denied other than noted above. Sleep Information Total Hours of Sleep: 7.00 Meal Information Percent of Breakfast Consumed: 100 Percent of Lunch Consumed: 100 Percent of Dinner Consumed: 100 Mental Status Exam During interview pt is: alert and oriented, cooperative Appearance: appropriately dressed, appropriately groomed, appeared stated age, other (Acne on face and chest, wearing glasses) Eye contact is: good Motor behavior is: steady gait & station, no abnormal motor movements, other ( relaxed) Speech: normal in rate, rhythm & volume Affect: euthymic Mood is: other ("really good") Thought process: goal directed, clear, coherent Thought content: reality based without delusions Suicidal thought are: present (ongoing since admission), Plan: present (OD), Intent: denied (cannot contract for safety outside of hospital setting) Homicidal thoughts are: denied Hallucinations: denies auditory, denies visual Cognition: memory grossly intact, attention grossly intact, language grossly intact Intelligence estimated to be: average Insight: impaired Judgement: impaired Medication Trials Prozac- aggressive Klonopin- abused Effexor- skin burning sensation Wellbutrin- flu like symptoms Abilify- Weight gain Trazodone- N, morning hangover Lamotrigine -tongue pain Buspar: cut her wrist September 2016 Impression Pt reports noticeable improvement in mood so far this morning and is tolerating her Speed. States Speed "is a game changer". She is agreeable to continuing the titration plan with lithium level rechecked in 4 days. Pt verbalized understanding and agreed. Will continue Seroquel at current dose for now to ensure stability prior to tapering. She is sleeping well and I do not see a reason to change it even though she states she has not slept at all. I did not feel she is with akathisia. She continues to report ongoing suicidality and reports rather intently that she has a plan to OD on OTC meds when she is discharged but also reports staying in the unit and going to groups will help her with coping strategies regarding these thoughts of SI. Strongly recommend ongoing inpatient mental health treatment as medication adjustments are ongoing and patient remains unable to contract for safety outside of the hospital setting. Plan (1) Bipolar disorder 06/27 - Will increase Lamictal to 50 mg. If rash emerges, then DC - Seroquel 100 mg. HS to target mood. titrate as tolerated - FLP and FBS for monitoring on atypicals - Repeat UA/C&S if indicated - Family meeting - Will need psychiatric aftercare - Q 15 min checks for safety - Encourage participation in group and individual counseling - Assist the patient to learn and utilize additional healthy coping strategies - Obtain records from current provider 06/28 - Increase Seroquel to 150 mg. HS - Continue current lamictal dose - Will need a seasoned therapist. 06/29 -Increase quetiapine to 200 mg nightly. Continue lamotrigine standard dose titration. -Fasting lipid profile and glucose for baseline on an atypical antipsychotic were within normal limits. 06/30 - Continue current meds - Try to provide patient with some exercises from DBT 07/01 - Continue current medications - Encouraged to continue to monitor sore on tongue as well as development of rash elsewhere, agreeable to continuing Lamictal titration at this time - Continue to work on establishing aftercare with seasoned therapist and psychiatrist 07/02 - while I am not convinced that the very small non ulcerative lesions on her tongue are secondary to the lamictal and she shows no rash or fever, will d/c out of abundance of precaution as her discomfort persists and the lamictal will take many weeks to titrate. She can reconsider this or an alternative mood stabilizer as a therapeutic agent with her outpatient provider, but will, for now, try to utilize the seroquel. - increase Seroquel to 300mg qhs for additional mood stabilization 07/03 - Lamictal discontinued. Continue Seroquel 300mg with monitoring for side effects. 07/04 - Add Seroquel 100 mg. 1700 to target rapid cycling/mood elevation in the evening 07/05 -Consolidate quetiapine 400 mg at bedtime, and add 25 mg every 4 hours as needed dose for irritability/anxiety/suicidality. -Patient states her tongue is feeling better, and is unwilling to retrial lamotrigine. Remaining options if quetiapine is ultimately ineffective for mood instability include risperidone, olanzapine, lithium, valproate, haloperidol, carbamazepine, or gabapentin off label. 07/06 - Trial lithobid, loading with 600-300-600 at [id number] tonight, with level in the AM - Baseline EKG - Continue Seroquel 07/07 - Lithobid 900mg qHS ordered, reviewed signs of toxicity. Ordered level to be checked in 5 days. - Continue Seroquel, can begin taper once stability reported on lithium dose - Speed level post-loading = 1.0 - EKG - NSR, QTc = 418 - Work with patient's improved mindset to continue to challenge SI and foster healthy coping skills 07/08 - continue current meds and treatment plan. Will Address Seroquel taper tomorrow. (2) Neurologic abnormality 06/27 - Patient with long standing variation in pupil dilation lt>rt - Only other neuro symptoms is the burning sensations that emerged on Effexor - +family history for MS - Refer to neuro post discharge (3) Borderline personality disorder 06/29 -patient reports she has been diagnosed with borderline personality disorder, although she does not necessarily agree with the diagnosis. She has displayed traits here, including reactivity of mood, interpersonal difficulties , chronic SI, and abandonment issues. 06/30 - Support appropriate boundaries 07/07 - Work with patient's improved mindset to challenge SI as able, while supporting appropriate boundaries. 07/08 - Continue groups Discharge / Aftercare Planning Primary Care Physician: Name: Dr. Naresh Anderson Date of Appointment: July 17, 2017 Time of Appointment: 9:00 a.m. Appointment Notes: [address] [place] [address] Therapist: Name: Day Frederickities Date of Appointment: Jul 10, 2017 Time of Appointment: 3pm Appointment Notes: [address] [place], [place] [address] [id number] [employer] Director: [facility] Date of Appointment: July 14, 2017 Time of Appointment: 8:30am Appointment Notes: [address] [facility], [address], [place] Neurologist: Name: [facility] Date of Appointment: July 31, 2017 Time of Appointment: 1:25 p.m. Appointment Notes: [address] [facility] [place] [address] Visit Code E&M Code: 46528 Inventory Assets Strengths: Good support from mother, has a job Needs: To learn and utilize additional healthy coping strategies, outpatient care Risk Factors Assessment : Yes /single/: Yes Higher / Fall in social status: No Access to guns: No Health problems: No Mental Health Diagnoses: Yes Substance use disorders: No Previous attempt: Yes Family history of suicide: No Previous psychiatric stay: Yes Hopelessness: No Smoker: No Protective Factors Assessment Yazidi beliefs: No : No Responsible for young children: No Employed: Yes Stable relationships: No Supportive family: Yes Good rapport with provider: No Data Vital Signs Last 24 Hrs: Date Time Temp Pulse Resp B/P (MAP) Pulse Ox O2 Delivery O2 Flow Rate FiO2 07/08/17 07:00 36.8 82 16 100/63 92 98/63 Meds Administered Last 24 Hrs: Meds Administered (Past 24Hrs) Medications (Trade) Dose Ordered Sig/Jay Route Start Time Stop Time Status Last Admin Dose Admin Speed Carbonate (Lithobid Tab) 600 mg TODAY@1600,2000 PO 07/06/17 16:00 07/06/17 22:00 DC 07/06/17 20:51 600 MG Speed Carbonate (Lithobid Tab) 300 mg TODAY@1800 PO 07/06/17 18:00 07/06/17 19:00 DC 07/06/17 18:08 300 MG Speed Carbonate (Lithobid Tab) 900 mg HS PO 07/07/17 22:00 08/06/17 21:59 07/07/17 21:23 900 MG Problem Qualifiers (1) Bipolar disorder: Active/Remission status: currently active Current bipolar episode type: depressed Current episode severity: severe Psychotic features: without psychotic features Qualified Codes: F31.4 - Bipolar disorder, current episode depressed, severe, without psychotic features
[2017-07-08] MEDS: hydrOXYzine HCL 25 MG TAB PO PRN ×2 (17:21→22:54)
[2017-07-08] MEDS: LITHIUM CARBONATE SR 300 MG TAB (LITHOBID) PO SCH (21:19)
[2017-07-08] MEDS: QUETIAPINE FUMARATE 200 MG TAB PO SCH (21:19)
[2017-07-09 07:01] VITALS: BP_SYST 94; BP_SYST 96; BP_DIAS 60; PULSE 102; PULSE 86; TEMP 36.8
--- NOTE | 2017-07-09 10:21 | Psych Management Progress Note ---
Psychiatry Miscellaneous Date of Service: Jul 09, 2017. Patient seen, MS assessed. Rates mood as "a bit shaky", attributes to Seroquel. Required prn Vistaril for sleep. Encouraged cooperation with care and treatment plan as outlined by allied health prescriber.
--- NOTE | 2017-07-09 11:39 | Psychiatric Progress Notes ---
Progress Note Date of Service Jul 09, 2017. Interval History 26-year-old woman admitted voluntarily with severe depression and suicidality. Chief Complaint "I'm a little better - a little shakey". Subjective Patient was seen & assessed. Interval progress reviewed with Treatment Team. The patient reports today that her mood is "a little better" and she rates the mood as a 6/10. She feels that adequate sleep last pm has helped with clarity. She still voices suicidality with plan to OD on "Tylenol and Benadryl combo" upon release from [facility] and bases this feeling on "guilt" that plagues her since she behaved badly and lost her friends and fiance some time ago even though she admits that living in [place] recently has allowed her to make new friends and go on a few dates. The patient is crying throughout the discussion this am. The patient desires to have the HS Seroquel reduced as she feels "wired" and "groggy like I had 4 drinks". She also states it makes her feel like she is going to "vomit". She feels that it interferes with her sleep and when she is challenged about documented hours slept she feels that the nurses do not realize that she is not sleeping -- except for last pm. She denies feeling ainsley, hypomanic or with psychosis symptoms. Sleep Information Total Hours of Sleep: 6.00 Meal Information Percent of Breakfast Consumed: 100 Percent of Lunch Consumed: 100 Percent of Dinner Consumed: 100 Mental Status Exam During interview pt is: alert and oriented, cooperative Appearance: appropriately dressed, appropriately groomed, appeared stated age, other (Acne on face and chest, wearing glasses) Eye contact is: good Motor behavior is: steady gait & station, no abnormal motor movements, other ( relaxed) Speech: normal in rate, rhythm & volume Affect: tearful Mood is: dysphoric Thought process: goal directed, clear, coherent Thought content: reality based without delusions Suicidal thought are: present (ongoing since admission), Plan: present (OD), Intent: denied (cannot contract for safety outside of hospital setting) Homicidal thoughts are: denied Hallucinations: denies auditory, denies visual Cognition: memory grossly intact, attention grossly intact, language grossly intact Intelligence estimated to be: average Insight: impaired Judgement: impaired Medication Trials Prozac- aggressive Klonopin- abused Effexor- skin burning sensation Wellbutrin- flu like symptoms Abilify- Weight gain Trazodone- N, morning hangover Lamotrigine -tongue pain Buspar: cut her wrist September 2016 Impression Pt reports noticeable improvement in mood so far this morning and is tolerating her Alex but wants a reduction in her seroquel as she feels it makes her "wired". She continues to voice ongoing suicidality and again reports rather intently that she has a plan to OD on OTC meds when she is discharged due to guilt feelings. She has reported that going to groups has helped her with coping strategies regarding these thoughts of SI but she still voices them. Recommend ongoing inpatient mental health treatment as medication adjustments are ongoing and patient remains unable to contract for safety outside of the hospital setting. Plan (1) Bipolar disorder 06/27 - Will increase Lamictal to 50 mg. If rash emerges, then DC - Seroquel 100 mg. HS to target mood. titrate as tolerated - FLP and FBS for monitoring on atypicals - Repeat UA/C&S if indicated - Family meeting - Will need psychiatric aftercare - Q 15 min checks for safety - Encourage participation in group and individual counseling - Assist the patient to learn and utilize additional healthy coping strategies - Obtain records from current provider 06/28 - Increase Seroquel to 150 mg. HS - Continue current lamictal dose - Will need a seasoned therapist. 06/29 -Increase quetiapine to 200 mg nightly. Continue lamotrigine standard dose titration. -Fasting lipid profile and glucose for baseline on an atypical antipsychotic were within normal limits. 06/30 - Continue current meds - Try to provide patient with some exercises from DBT 07/01 - Continue current medications - Encouraged to continue to monitor sore on tongue as well as development of rash elsewhere, agreeable to continuing Lamictal titration at this time - Continue to work on establishing aftercare with seasoned therapist and psychiatrist 07/02 - while I am not convinced that the very small non ulcerative lesions on her tongue are secondary to the lamictal and she shows no rash or fever, will d/c out of abundance of precaution as her discomfort persists and the lamictal will take many weeks to titrate. She can reconsider this or an alternative mood stabilizer as a therapeutic agent with her outpatient provider, but will, for now, try to utilize the seroquel. - increase Seroquel to 300mg qhs for additional mood stabilization 07/03 - Lamictal discontinued. Continue Seroquel 300mg with monitoring for side effects. 07/04 - Add Seroquel 100 mg. 1700 to target rapid cycling/mood elevation in the evening 07/05 -Consolidate quetiapine 400 mg at bedtime, and add 25 mg every 4 hours as needed dose for irritability/anxiety/suicidality. -Patient states her tongue is feeling better, and is unwilling to retrial lamotrigine. Remaining options if quetiapine is ultimately ineffective for mood instability include risperidone, olanzapine, lithium, valproate, haloperidol, carbamazepine, or gabapentin off label. 07/06 - Trial lithobid, loading with 600-300-600 at [phone] tonight, with level in the AM - Baseline EKG - Continue Seroquel 07/07 - Lithobid 900mg qHS ordered, reviewed signs of toxicity. Ordered level to be checked in 5 days. - Continue Seroquel, can begin taper once stability reported on lithium dose - Alex level post-loading = 1.0 - EKG - NSR, QTc = 418 - Work with patient's improved mindset to continue to challenge SI and foster healthy coping skills 07/08 - continue current meds and treatment plan. Will Address Seroquel taper tomorrow. 07/09 - continue Alex. Alex level is scheduled. - decrease Seroquel to 300 mg due to "drunk, groggy" feeling (2) Neurologic abnormality 06/27 - Patient with long standing variation in pupil dilation lt>rt - Only other neuro symptoms is the burning sensations that emerged on Effexor - +family history for MS - Refer to neuro post discharge (3) Borderline personality disorder 06/29 -patient reports she has been diagnosed with borderline personality disorder, although she does not necessarily agree with the diagnosis. She has displayed traits here, including reactivity of mood, interpersonal difficulties , chronic SI, and abandonment issues. 06/30 - Support appropriate boundaries 07/07 - Work with patient's improved mindset to challenge SI as able, while supporting appropriate boundaries. 07/08 - Continue groups Discharge / Aftercare Planning Primary Care Physician: Name: Dr. Naresh Anderson Date of Appointment: July 17, 2017 Time of Appointment: 9:00 a.m. Appointment Notes: [address] [place] [address] Therapist: Name: Day Douglas Date of Appointment: Jul 10, 2017 Time of Appointment: 3pm Appointment Notes: [address] [facility], [place] [address] [employer] Attendant: Name: Misty Rae [facility] Date of Appointment: July 14, 2017 Time of Appointment: 8:30am Appointment Notes: [address] [facility], [address], [place] Neurologist: Name: [facility] Date of Appointment: July 31, 2017 Time of Appointment: 1:25 p.m. Appointment Notes: [address] [place], [place] [address] Visit Code E&M Code: 12509 Inventory Assets Strengths: Good support from mother, has a job Needs: To learn and utilize additional healthy coping strategies, outpatient care Risk Factors Assessment : Yes /single/: Yes Higher / Fall in social status: No Access to guns: No Health problems: No Mental Health Diagnoses: Yes Substance use disorders: No Previous attempt: Yes Family history of suicide: No Previous psychiatric stay: Yes Hopelessness: No Smoker: No Protective Factors Assessment Baptist beliefs: No : No Responsible for young children: No Employed: Yes Stable relationships: No Supportive family: Yes Good rapport with provider: No Data Vital Signs Last 24 Hrs: Date Time Temp Pulse Resp B/P (MAP) Pulse Ox O2 Delivery O2 Flow Rate FiO2 07/09/17 07:01 36.8 86 16 94/60 102 96/60 Meds Administered Last 24 Hrs: Meds Administered (Past 24Hrs) Medications (Trade) Dose Ordered Sig/Jay Route Start Time Stop Time Status Last Admin Dose Admin Alex Carbonate (Lithobid Tab) 900 mg HS PO 07/07/17 22:00 08/06/17 21:59 07/08/17 21:19 900 MG Problem Qualifiers (1) Bipolar disorder: Active/Remission status: currently active Current bipolar episode type: depressed Current episode severity: severe Psychotic features: without psychotic features Qualified Codes: F31.4 - Bipolar disorder, current episode depressed, severe, without psychotic features
[2017-07-09] MEDS: LITHIUM CARBONATE SR 300 MG TAB (LITHOBID) PO SCH (21:31)
[2017-07-09] MEDS ORDERED: QUETIAPINE FUMARATE 300 MG TAB PO SCH (22:00)
[2017-07-10 06:44] VITALS: BP_SYST 95; BP_SYST 96; BP_DIAS 58; BP_DIAS 59; PULSE 76; PULSE 98; TEMP 37
--- NOTE | 2017-07-10 12:25 | Psychiatric Progress Notes ---
Progress Note Date of Service Jul 10, 2017. Interval History 26-year-old woman admitted voluntarily with severe depression and suicidality. Chief Complaint "The lithium is really good for me". Subjective Patient was seen & assessed interval progress reviewed with Treatment Team. Staff report the patient remains suicidal on the unit, but continues to report the positive response she has had to starting lithium. Pt states she has been attempting to process her ongoing SI with one-on-one counseling. She states "guilt runs deep in me" and shares she has been told she needs to reach a point of forgiving herself for the things she feels guilty for. Pt states, "my SI is rooted in such logic that I don't think it will go away until I forgive myself. " Discussed with patient about breaking apart that task into smaller goals ( i.e. forgive yourself for a bad phone call, a rough conversation, etc.) Pt is able to appreciate the idea that this is a process that may need to continue long after she is discharged. Discussed realistic expectations of medications and that suicidal thoughts may never completely resolve with medication alone. We were able to look at more attainable goals in regard to being able to use healthy coping strategies and feeling comfortable to continue this on an outpatient basis. Pt would benefit from a more intensive discharge plan, as insurance issues at admission have prevented formal psychiatric follow-up. Pt is hoping this can be resolved. Pt reports SI today and was asked to consider her actions if she were discharged today. Pt responds by saying, "there is a 100% chance I would act on my thoughts and take my life." Pt denies other needs or concerns today. Review of Systems Psych: denies symptoms other than stated above Constitutional: denied Cardiovascular: denied GI: reports occasional evening bloating : reports more frequent urination Neurologic: denied Remainder of 10 body systems also reviewed and denied other than noted above. Sleep Information Total Hours of Sleep: 7.25 Meal Information Percent of Breakfast Consumed: 100 Percent of Lunch Consumed: 100 Percent of Dinner Consumed: 100 Mental Status Exam During interview pt is: alert and oriented, cooperative Appearance: appropriately dressed, appropriately groomed, appeared stated age Eye contact is: good Motor behavior is: steady gait & station, no abnormal motor movements, other ( relaxed) Speech: normal in rate, rhythm & volume Affect: blunted Mood is: depressed, other (affect incongruent to reports of "the best I have felt in 3 or 4 years") Thought process: goal directed, clear, coherent Thought content: reality based without delusions Suicidal thought are: present ("100% chance I would act on them" if discharged today.), Plan: present (OD), Intent: present (feels safe on unit, but reports very high chance of acting if outpatient) Homicidal thoughts are: denied Hallucinations: denies auditory, denies visual Cognition: memory grossly intact, attention grossly intact, language grossly intact Intelligence estimated to be: average Insight: impaired Judgement: impaired Medication Trials Prozac- aggressive Klonopin- abused Effexor- skin burning sensation Wellbutrin- flu like symptoms Abilify- Weight gain Trazodone- N, morning hangover Lamotrigine -tongue pain Buspar: cut her wrist September 2016 Impression Pt continues to report improvement in mood, stating this is "the best I've felt in 3-4 years". Despite these reports, patient remains constantly suicidal on the unit. Pt continues to report positive response to lithium. Level scheduled for 07/12. Pt is interested in discontinuing Seroquel as, "I'll probably just stop it outpatient anyway." Discussed plan to continue to taper slowly with ongoing monitoring. Pt aware that mood improvement may be to several agents in combination, but will work to taper with observation of mood and suicidality. Will decrease Seroquel to 200mg this evening. Pt requires ongoing inpatient mental health treatment as she remains suicidal and unable to contract for safety outside of the hospital. Pt reports "100% likelihood" that she would act on SI if discharged. Will continue to safety plan and encourage healthy coping skills as medication adjustment continues. Plan (1) Bipolar disorder 06/27 - Will increase Lamictal to 50 mg. If rash emerges, then DC - Seroquel 100 mg. HS to target mood. titrate as tolerated - FLP and FBS for monitoring on atypicals - Repeat UA/C&S if indicated - Family meeting - Will need psychiatric aftercare - Q 15 min checks for safety - Encourage participation in group and individual counseling - Assist the patient to learn and utilize additional healthy coping strategies - Obtain records from current provider 06/28 - Increase Seroquel to 150 mg. HS - Continue current lamictal dose - Will need a seasoned therapist. 06/29 -Increase quetiapine to 200 mg nightly. Continue lamotrigine standard dose titration. -Fasting lipid profile and glucose for baseline on an atypical antipsychotic were within normal limits. 06/30 - Continue current meds - Try to provide patient with some exercises from DBT 07/01 - Continue current medications - Encouraged to continue to monitor sore on tongue as well as development of rash elsewhere, agreeable to continuing Lamictal titration at this time - Continue to work on establishing aftercare with seasoned therapist and psychiatrist 07/02 - while I am not convinced that the very small non ulcerative lesions on her tongue are secondary to the lamictal and she shows no rash or fever, will d/c out of abundance of precaution as her discomfort persists and the lamictal will take many weeks to titrate. She can reconsider this or an alternative mood stabilizer as a therapeutic agent with her outpatient provider, but will, for now, try to utilize the seroquel. - increase Seroquel to 300mg qhs for additional mood stabilization 07/03 - Lamictal discontinued. Continue Seroquel 300mg with monitoring for side effects. 07/04 - Add Seroquel 100 mg. 1700 to target rapid cycling/mood elevation in the evening 07/05 -Consolidate quetiapine 400 mg at bedtime, and add 25 mg every 4 hours as needed dose for irritability/anxiety/suicidality. -Patient states her tongue is feeling better, and is unwilling to retrial lamotrigine. Remaining options if quetiapine is ultimately ineffective for mood instability include risperidone, olanzapine, lithium, valproate, haloperidol, carbamazepine, or gabapentin off label. 07/06 - Trial lithobid, loading with 600-300-600 at [id number] tonight, with level in the AM - Baseline EKG - Continue Seroquel 07/07 - Lithobid 900mg qHS ordered, reviewed signs of toxicity. Ordered level to be checked in 5 days. - Continue Seroquel, can begin taper once stability reported on lithium dose - Bowman level post-loading = 1.0 - EKG - NSR, QTc = 418 - Work with patient's improved mindset to continue to challenge SI and foster healthy coping skills 07/08 - continue current meds and treatment plan. Will Address Seroquel taper tomorrow. 07/09 - continue Bowman. Bowman level is scheduled. - decrease Seroquel to 300 mg due to "drunk, groggy" feeling 07/10 - Continue lithium 900mg qHS, level scheduled for 07/12 - Will continue Seroquel taper with ongoing monitoring for worsening of mood stability or SI. Will order 200mg tonight. - Continue to encourage active engagement with one-on-one counseling and attempts to process guilt. (2) Neurologic abnormality 06/27 - Patient with long standing variation in pupil dilation lt>rt - Only other neuro symptoms is the burning sensations that emerged on Effexor - +family history for MS - Refer to neuro post discharge (3) Borderline personality disorder 06/29 -patient reports she has been diagnosed with borderline personality disorder, although she does not necessarily agree with the diagnosis. She has displayed traits here, including reactivity of mood, interpersonal difficulties , chronic SI, and abandonment issues. 06/30 - Support appropriate boundaries 07/07 - Work with patient's improved mindset to challenge SI as able, while supporting appropriate boundaries. 07/08 - Continue groups 07/10 - As patient is aware of her BPD diagnosis, she may benefit from ongoing counseling and education on her diagnosis. Consider if patient continues to lack improvement with medication changes and current therapy. Discharge / Aftercare Planning Primary Care Physician: Name: Dr. Naresh Anderson Date of Appointment: July 17, 2017 Time of Appointment: 9:00 a.m. Appointment Notes: [address] [facility] [place] [address] Therapist: Name: Day Douglas Appointment Notes: [address] [place] [id number] Perioperative Educator: Name: Misty Jaramillo [facility] Date of Appointment: July 14, 2017 Time of Appointment: 8:30am Appointment Notes: [address] [facility] [place], [address], [place] Neurologist: Name: [facility] Date of Appointment: July 31, 2017 Time of Appointment: 1:25 p.m. Appointment Notes: [address] [facility] [place] [address] Visit Code E&M Code: 23662 Inventory Assets Strengths: Good support from mother, has a job Needs: To learn and utilize additional healthy coping strategies, outpatient care Risk Factors Assessment : Yes /single/: Yes Higher / Fall in social status: No Access to guns: No Health problems: No Mental Health Diagnoses: Yes Substance use disorders: No Previous attempt: Yes Family history of suicide: No Previous psychiatric stay: Yes Hopelessness: No Smoker: No Protective Factors Assessment Jehovah'S Witness beliefs: No : No Responsible for young children: No Employed: Yes Stable relationships: No Supportive family: Yes Good rapport with provider: No Data Vital Signs Last 24 Hrs: Date Time Temp Pulse Resp B/P (MAP) Pulse Ox O2 Delivery O2 Flow Rate FiO2 07/10/17 06:44 37.0 76 16 95/58 98 96/59 Meds Administered Last 24 Hrs: Meds Administered (Past 24Hrs) Medications (Trade) Dose Ordered Sig/Jay Route Start Time Stop Time Status Last Admin Dose Admin Quetiapine Fumarate (seroQUEL TAB) 300 mg HS PO 07/09/17 22:00 07/28/17 21:59 07/09/17 21:31 300 MG Problem Qualifiers (1) Bipolar disorder: Active/Remission status: currently active Current bipolar episode type: depressed Current episode severity: severe Psychotic features: without psychotic features Qualified Codes: F31.4 - Bipolar disorder, current episode depressed, severe, without psychotic features
[2017-07-10] MEDS: ALUMINUM/MAGNESIUM SUSP 30 ML UDC PO PRN (17:09)
[2017-07-10] MEDS: LITHIUM CARBONATE SR 300 MG TAB (LITHOBID) PO SCH (21:13)
[2017-07-10] MEDS ORDERED: QUETIAPINE FUMARATE 200 MG TAB PO SCH (22:00)
[2017-07-11 06:35] VITALS: BP_SYST 98; BP_SYST 99; BP_DIAS 63; BP_DIAS 65; PULSE 71; PULSE 93; TEMP 36.8
--- NOTE | 2017-07-11 11:44 | Psychiatric Progress Notes ---
Progress Note Date of Service July 11, 2017. Interval History 26-year-old woman admitted voluntarily with severe depression and suicidality. Chief Complaint "I feel great on the lithium ". Subjective Patient was seen & assessed interval progress reviewed with Nursing. Staff report she continues to display a bright affect, but reports ongoing suicidal thoughts and inability to contract for safety outside of the hospital. Social work assisted her to contact the [facility] assistance office, trying to clarify her medical assistance/insurance, and today her medical assistance was confirmed. Her parents are having her removed from her father's commercial insurance in [place], so that she will be able to utilize her medical assistance. She reported feeling frustrated last evening, stating that it took her a long time to get a diagnosis of bipolar disorder, which she feels is the right diagnosis, as her symptoms have improved since starting a mood stabilizer. On my assessment today, she states that her mood is improved, she feels "more in myself, more secure in my body" since starting lithium, and thinks it is helping. She says her thoughts have slowed and are more grounded, and she feels less impulsive. She continues to endorse suicidal thoughts which she states are "always in the back of my mind, always there," and that she will frequently think throughout the day that "none of this matters, because I do not know how long I will be around." Although she denies any intent to harm herself in the hospital, she continues to state she does not know if she would attempt suicide if she were not in the hospital. She continues to endorse a plan to overdose, and admits that she has 2 large bottles of medications at home (Benadryl and Tylenol). She says that she will dispose of them after she returns home, but is refusing to allow anyone else to do this prior to discharge , stating she does not want people in her room or in her belongings, even though her mother is going to her home today to get some things for her. She goes on to say that it would not matter if she disposed of these medications, because she could just go out and buy some more. She states that she is worried about not having psychiatric after care, although was reassured that we are working on this is part of her discharge planning, but her insurance has been a barrier. She states that the sensation of her skin being on fire has resolved. Review of Systems No tremor, pain, headaches, GI symptoms. Sleep Information Total Hours of Sleep: 7.00 Meal Information Percent of Breakfast Consumed: 100 Percent of Lunch Consumed: 100 Percent of Dinner Consumed: 25 Mental Status Exam During interview pt is: alert and oriented, cooperative Appearance: appropriately dressed, appropriately groomed, appeared stated age Eye contact is: good Motor behavior is: steady gait & station, no abnormal motor movements, other ( relaxed, lounging in her chair with legs outstretched) Speech: normal in rate, rhythm & volume Affect: euthymic Mood is: depressed, other ("I feel great on the lithium.") Thought process: goal directed, clear, coherent Thought content: reality based without delusions Suicidal thought are: present (Continues to endorse constant suicidal thoughts with a plan to overdose, and cannot contract for safety outside of the hospital. ) Homicidal thoughts are: denied Hallucinations: denies auditory, denies visual Cognition: memory grossly intact, attention grossly intact, language grossly intact Intelligence estimated to be: average Insight: impaired Judgement: impaired Medication Trials Prozac- aggressive Klonopin- abused Effexor- skin burning sensation Wellbutrin- flu like symptoms Abilify- Weight gain Trazodone- N, morning hangover Lamotrigine -tongue pain Buspar: cut her wrist September 2016 Impression Pt continues to report improvement in mood, feels lithium is helping, but despite the improvement, remains consistently suicidal and unable to contract for safety outside of the hospital. Olivette trough level ordered for 07/12. Quetiapine is being tapered, as she is not committed to continuing to take it after discharge. She requires ongoing inpatient mental health treatment as she remains suicidal and unable to contract for safety outside of the hospital. Plan (1) Bipolar disorder 06/27 - Will increase Lamictal to 50 mg. If rash emerges, then DC - Seroquel 100 mg. HS to target mood. titrate as tolerated - FLP and FBS for monitoring on atypicals - Repeat UA/C&S if indicated - Family meeting - Will need psychiatric aftercare - Q 15 min checks for safety - Encourage participation in group and individual counseling - Assist the patient to learn and utilize additional healthy coping strategies - Obtain records from current provider 06/28 - Increase Seroquel to 150 mg. HS - Continue current lamictal dose - Will need a seasoned therapist. 06/29 -Increase quetiapine to 200 mg nightly. Continue lamotrigine standard dose titration. -Fasting lipid profile and glucose for baseline on an atypical antipsychotic were within normal limits. 06/30 - Continue current meds - Try to provide patient with some exercises from DBT 07/01 - Continue current medications - Encouraged to continue to monitor sore on tongue as well as development of rash elsewhere, agreeable to continuing Lamictal titration at this time - Continue to work on establishing aftercare with seasoned therapist and psychiatrist 07/02 - while I am not convinced that the very small non ulcerative lesions on her tongue are secondary to the lamictal and she shows no rash or fever, will d/c out of abundance of precaution as her discomfort persists and the lamictal will take many weeks to titrate. She can reconsider this or an alternative mood stabilizer as a therapeutic agent with her outpatient provider, but will, for now, try to utilize the seroquel. - increase Seroquel to 300mg qhs for additional mood stabilization 07/03 - Lamictal discontinued. Continue Seroquel 300mg with monitoring for side effects. 07/04 - Add Seroquel 100 mg. 1700 to target rapid cycling/mood elevation in the evening 07/05 -Consolidate quetiapine 400 mg at bedtime, and add 25 mg every 4 hours as needed dose for irritability/anxiety/suicidality. -Patient states her tongue is feeling better, and is unwilling to retrial lamotrigine. Remaining options if quetiapine is ultimately ineffective for mood instability include risperidone, olanzapine, lithium, valproate, haloperidol, carbamazepine, or gabapentin off label. 07/06 - Trial lithobid, loading with 600-300-600 at [id number] tonight, with level in the AM - Baseline EKG - Continue Seroquel 07/07 - Lithobid 900mg qHS ordered, reviewed signs of toxicity. Ordered level to be checked in 5 days. - Continue Seroquel, can begin taper once stability reported on lithium dose - Olivette level post-loading = 1.0 - EKG - NSR, QTc = 418 - Work with patient's improved mindset to continue to challenge SI and foster healthy coping skills 07/08 - continue current meds and treatment plan. Will Address Seroquel taper tomorrow. 07/09 - continue Olivette. Olivette level is scheduled. - decrease Seroquel to 300 mg due to "drunk, groggy" feeling 07/10 - Continue lithium 900mg qHS, level scheduled for 07/12 - Will continue Seroquel taper with ongoing monitoring for worsening of mood stability or SI. Will order 200mg tonight. - Continue to encourage active engagement with one-on-one counseling and attempts to process guilt. 07/11 -Continue lithium, level tomorrow. -Decrease quetiapine to 150 mg tonight, and continue taper at patient's request. Monitor for destabilization of mood or sleep. -Patient encouraged to work on her discharge safety plan, including recommendations that the bottles of medications in her home be disposed of prior to discharge, which she is refusing, stating she does not want anyone else going into her room. -Consider prescribing lithium in 1 week supplies after discharge, as she is refusing to allow someone else to hold her medications for safety, and should not have access to large amounts of pills that are dangerous in overdose. (2) Borderline personality disorder 06/29 -patient reports she has been diagnosed with borderline personality disorder, although she does not necessarily agree with the diagnosis. She has displayed traits here, including reactivity of mood, interpersonal difficulties , chronic SI, and abandonment issues. 06/30 - Support appropriate boundaries 07/07 - Work with patient's improved mindset to challenge SI as able, while supporting appropriate boundaries. 07/08 - Continue groups 07/10 - As patient is aware of her BPD diagnosis, she may benefit from ongoing counseling and education on her diagnosis. Consider if patient continues to lack improvement with medication changes and current therapy. 07/11 -Patient continues to disagree with the personality disorder diagnosis, feeling that her symptoms are due to instead to rapid cycling bipolar disorder. She would benefit from ongoing psychoeducation and DBT as an outpatient. (3) Neurologic abnormality 06/27 - Patient with long standing variation in pupil dilation lt>rt - Only other neuro symptoms is the burning sensations that emerged on Effexor - +family history for MS - Refer to neuro post discharge Discharge / Aftercare Planning Primary Care Physician: Name: Dr. Naresh Anderson Date of Appointment: July 17, 2017 Time of Appointment: 9:00 a.m. Appointment Notes: [address], [place], [place] [address] Psychiatrist: Name: Jac Valentin - Telemed Date of Appointment: July 24, 2017 Time of Appointment: 10:30 am Appointment Notes: [address] [facility] [address] [facility] [address] Therapist: Name: Jac Homero Jaramillo Nicki Yassine Date of Appointment: July 24, 2017 Time of Appointment: 10:30 am Appointment Notes: [address] [facility] [address] [facility] [address] Account Support Rep: Name: Misty Ferguson [facility] Date of Appointment: July 14, 2017 Time of Appointment: 8:30am Appointment Notes: [facility], [address], [place] Neurologist: Name: [facility] Date of Appointment: July 31, 2017 Time of Appointment: 1:25 p.m. Appointment Notes: [address] [place] [address], [place] [address] Visit Code E&M Code: 08740 Inventory Assets Strengths: Good support from mother, has a job Needs: To learn and utilize additional healthy coping strategies, outpatient care Risk Factors Assessment : Yes /single/: Yes Higher / Fall in social status: No Access to guns: No Health problems: No Mental Health Diagnoses: Yes Substance use disorders: No Previous attempt: Yes Family history of suicide: No Previous psychiatric stay: Yes Hopelessness: No Smoker: No Protective Factors Assessment [employer] beliefs: No : No Responsible for young children: No Employed: Yes Stable relationships: No Supportive family: Yes Good rapport with provider: No Data Vital Signs Last 24 Hrs: Date Time Temp Pulse Resp B/P (MAP) Pulse Ox O2 Delivery O2 Flow Rate FiO2 07/11/17 06:35 36.8 71 16 99/65 93 98/63 Meds Administered Last 24 Hrs: Meds Administered (Past 24Hrs) Medications (Trade) Dose Ordered Sig/Jay Route Start Time Stop Time Status Last Admin Dose Admin Quetiapine Fumarate (seroQUEL TAB) 300 mg HS PO 07/09/17 22:00 07/10/17 12:55 DC 07/09/17 21:31 300 MG Quetiapine Fumarate (seroQUEL TAB) 200 mg HS PO 07/10/17 22:00 07/28/17 21:59 07/10/17 21:13 200 MG Problem Qualifiers (1) Bipolar disorder: Active/Remission status: currently active Current bipolar episode type: depressed Current episode severity: severe Psychotic features: without psychotic features Qualified Codes: F31.4 - Bipolar disorder, current episode depressed, severe, without psychotic features
[2017-07-11] MEDS: QUETIAPINE FUMARATE 100 MG TAB PO SCH (21:06)
[2017-07-11] MEDS: LITHIUM CARBONATE SR 300 MG TAB (LITHOBID) PO SCH (21:06)
[2017-07-12 06:45] VITALS: BP_SYST 95; BP_SYST 99; BP_DIAS 61; BP_DIAS 63; PULSE 83; PULSE 96; TEMP 37
--- NOTE | 2017-07-12 11:08 | Psychiatric Progress Notes ---
Progress Note Date of Service July 12, 2017. Interval History 26-year-old woman admitted voluntarily with severe depression and suicidality. Chief Complaint "I'm feeling much better.". Subjective Patient was seen & assessed interval progress reviewed with Treatment Team. The patient says that she is feeling much better since starting the lithium. [place]on level this AM, 1.1, and denies any signs of toxicity. She says that her moods are even and she feels "more inside myself than I have been for over a year" which she describes as "an amazing feeling". She says that its sad that her "old life" had to be ruined for want of the right medication. She denies any SI. She confirms that she has her safety plan completed and thinks that she will be ready to go home tomorrow, feeling that she has gotten all she can out of our program. Review of Systems Constitutional: No fever, No chills, No sweats, No weight loss, No weakness, No fatigue, No problem reported ENT: No hearing loss, No unusual epistaxis, No nasal symptoms, No sore throat, No tinnitus, No dental problems, No trouble swallowing, No problem reported Respiratory: No cough, No sputum, No wheezing, No shortness of breath, No dyspnea on exertion, No dyspnea at rest, No hemoptysis, No problem reported Cardiovascular: No chest pain, No orthopnea, No PND, No edema, No claudication , No palpitations, No problem reported Abdomen: No pain, No nausea, No vomiting, No diarrhea, No constipation, No GI bleeding, No problem reported Musculoskeletal: No joint pain, No muscle pain, No swelling, No calf pain, No problem reported Neurologic: No memory loss, No paralysis, No weakness, No numbness/tingling, No vertigo, No balance problems, No problem reported Psychiatric: No depression symptoms, No anhedonism, No anxiety, No insomnia, No substance abuse, No problem reported Integumentary: No rash, No itch, No new/changing skin lesions, No color change , No bleeding, No problem reported Sleep Information Total Hours of Sleep: 7.25 Meal Information Percent of Breakfast Consumed: 100 Percent of Lunch Consumed: 100 Percent of Dinner Consumed: 50 Mental Status Exam During interview pt is: alert and oriented, cooperative Appearance: appropriately dressed, appropriately groomed, appeared stated age Eye contact is: good Motor behavior is: steady gait & station, no abnormal motor movements Speech: normal in rate, rhythm & volume Affect: euthymic Mood is: other ("much better") Thought process: goal directed, clear, coherent Thought content: reality based without delusions Suicidal thought are: denied Homicidal thoughts are: denied Hallucinations: denies auditory, denies visual Cognition: memory grossly intact, attention grossly intact, language grossly intact Intelligence estimated to be: average Insight: limited Judgement: limited Medication Trials Prozac- aggressive Klonopin- abused Effexor- skin burning sensation Wellbutrin- flu like symptoms Abilify- Weight gain Trazodone- N, morning hangover Lamotrigine -tongue pain Buspar: cut her wrist September 2016 Impression Progress continues, reporting stable moods and no side effects to lithium. Level this AM 1.1. Reviewed S&S of lithium toxicity and to notify provider is she experiences them. Feels she may be able to go home tomorrow. Plan (1) Bipolar disorder 06/27 - Will increase Lamictal to 50 mg. If rash emerges, then DC - Seroquel 100 mg. HS to target mood. titrate as tolerated - FLP and FBS for monitoring on atypicals - Repeat UA/C&S if indicated - Family meeting - Will need psychiatric aftercare - Q 15 min checks for safety - Encourage participation in group and individual counseling - Assist the patient to learn and utilize additional healthy coping strategies - Obtain records from current provider 06/28 - Increase Seroquel to 150 mg. HS - Continue current lamictal dose - Will need a seasoned therapist. 06/29 -Increase quetiapine to 200 mg nightly. Continue lamotrigine standard dose titration. -Fasting lipid profile and glucose for baseline on an atypical antipsychotic were within normal limits. 06/30 - Continue current meds - Try to provide patient with some exercises from DBT 07/01 - Continue current medications - Encouraged to continue to monitor sore on tongue as well as development of rash elsewhere, agreeable to continuing Lamictal titration at this time - Continue to work on establishing aftercare with seasoned therapist and psychiatrist 07/02 - while I am not convinced that the very small non ulcerative lesions on her tongue are secondary to the lamictal and she shows no rash or fever, will d/c out of abundance of precaution as her discomfort persists and the lamictal will take many weeks to titrate. She can reconsider this or an alternative mood stabilizer as a therapeutic agent with her outpatient provider, but will, for now, try to utilize the seroquel. - increase Seroquel to 300mg qhs for additional mood stabilization 07/03 - Lamictal discontinued. Continue Seroquel 300mg with monitoring for side effects. 07/04 - Add Seroquel 100 mg. 1700 to target rapid cycling/mood elevation in the evening 07/05 -Consolidate quetiapine 400 mg at bedtime, and add 25 mg every 4 hours as needed dose for irritability/anxiety/suicidality. -Patient states her tongue is feeling better, and is unwilling to retrial lamotrigine. Remaining options if quetiapine is ultimately ineffective for mood instability include risperidone, olanzapine, lithium, valproate, haloperidol, carbamazepine, or gabapentin off label. 07/06 - Trial lithobid, loading with 600-300-600 at [phone] tonight, with level in the AM - Baseline EKG - Continue Seroquel 07/07 - Lithobid 900mg qHS ordered, reviewed signs of toxicity. Ordered level to be checked in 5 days. - Continue Seroquel, can begin taper once stability reported on lithium dose - H[place]on level post-loading = 1.0 - EKG - NSR, QTc = 418 - Work with patient's improved mindset to continue to challenge SI and foster healthy coping skills 07/08 - continue current meds and treatment plan. Will Address Seroquel taper tomorrow. 07/09 - continue Haledon. H[place]on level is scheduled. - decrease Seroquel to 300 mg due to "drunk, groggy" feeling 07/10 - Continue lithium 900mg qHS, level scheduled for 07/12 - Will continue Seroquel taper with ongoing monitoring for worsening of mood stability or SI. Will order 200mg tonight. - Continue to encourage active engagement with one-on-one counseling and attempts to process guilt. 07/11 -Continue lithium, level tomorrow. -Decrease quetiapine to 150 mg tonight, and continue taper at patient's request. Monitor for destabilization of mood or sleep. -Patient encouraged to work on her discharge safety plan, including recommendations that the bottles of medications in her home be disposed of prior to discharge, which she is refusing, stating she does not want anyone else going into her room. -Consider prescribing lithium in 1 week supplies after discharge, as she is refusing to allow someone else to hold her medications for safety, and should not have access to large amounts of pills that are dangerous in overdose. 07/12 - Li level 1.1. Continue current dose (2) Borderline personality disorder 06/29 -patient reports she has been diagnosed with borderline personality disorder, although she does not necessarily agree with the diagnosis. She has displayed traits here, including reactivity of mood, interpersonal difficulties , chronic SI, and abandonment issues. 06/30 - Support appropriate boundaries 07/07 - Work with patient's improved mindset to challenge SI as able, while supporting appropriate boundaries. 07/08 - Continue groups 07/10 - As patient is aware of her BPD diagnosis, she may benefit from ongoing counseling and education on her diagnosis. Consider if patient continues to lack improvement with medication changes and current therapy. 07/11 -Patient continues to disagree with the personality disorder diagnosis, feeling that her symptoms are due to instead to rapid cycling bipolar disorder. She would benefit from ongoing psychoeducation and DBT as an outpatient. (3) Neurologic abnormality 06/27 - Patient with long standing variation in pupil dilation lt>rt - Only other neuro symptoms is the burning sensations that emerged on Effexor - +family history for MS - Refer to neuro post discharge Discharge / Aftercare Planning Primary Care Physician: Name: Dr. Naresh Anderson Date of Appointment: July 17, 2017 Time of Appointment: 9:00 a.m. Appointment Notes: [address] [place] [address], [place] [address] Psychiatrist: Name: Jac Valentin - Telemed Date of Appointment: July 24, 2017 Time of Appointment: 10:30 am Appointment Notes: [address] [place] [address] [id number] [facility] [id number] Therapist: Name: Jac Metzger Date of Appointment: July 24, 2017 Time of Appointment: 10:30 am Appointment Notes: [address] [place] [address] [address] [facility] [address] County Tax Assessor: Name: Misty Ferguson [facility] Date of Appointment: July 14, 2017 Time of Appointment: 8:30am Appointment Notes: [address], [address], [place] Neurologist: Name: [facility] Date of Appointment: July 31, 2017 Time of Appointment: 1:25 p.m. Appointment Notes: [address], [place], [place] [address] Visit Code E&M Code: 54537 Inventory Assets Strengths: Good support from mother, has a job Needs: To learn and utilize additional healthy coping strategies, outpatient care Risk Factors Assessment : Yes /single/: Yes Higher / Fall in social status: No Access to guns: No Health problems: No Mental Health Diagnoses: Yes Substance use disorders: No Previous attempt: Yes Family history of suicide: No Previous psychiatric stay: Yes Hopelessness: No Smoker: No Protective Factors Assessment [employer]an beliefs: No : No Responsible for young children: No Employed: Yes Stable relationships: No Supportive family: Yes Good rapport with provider: No Data Vital Signs Last 24 Hrs: Date Time Temp Pulse Resp B/P (MAP) Pulse Ox O2 Delivery O2 Flow Rate FiO2 07/12/17 06:45 37.0 83 16 99/63 96 95/61 Meds Administered Last 24 Hrs: Meds Administered (Past 24Hrs) Medications (Trade) Dose Ordered Sig/Jay Route Start Time Stop Time Status Last Admin Dose Admin Quetiapine Fumarate (seroQUEL TAB) 200 mg HS PO 07/10/17 22:00 07/11/17 11:43 DC 07/10/17 21:13 200 MG Quetiapine Fumarate (seroQUEL TAB) 150 mg HS PO 07/11/17 22:00 07/28/17 21:59 07/11/17 21:06 150 MG Lab Results Last 24 Hrs: Last 24 Hours Test 07/12/17 08:06 H[place]on Level 1.1 mMOL/L Problem Qualifiers (1) Bipolar disorder: Active/Remission status: currently active Current bipolar episode type: depressed Current episode severity: severe Psychotic features: without psychotic features Qualified Codes: F31.4 - Bipolar disorder, current episode depressed, severe, without psychotic features
[2017-07-12] MEDS: hydrOXYzine HCL 25 MG TAB PO PRN ×2 (15:48→21:19)
[2017-07-12] MEDS: ALUMINUM/MAGNESIUM SUSP 30 ML UDC PO PRN (17:53)
[2017-07-12] MEDS: LITHIUM CARBONATE SR 300 MG TAB (LITHOBID) PO SCH (21:16)
[2017-07-12] MEDS: QUETIAPINE FUMARATE 100 MG TAB PO SCH (21:17)
[2017-07-13 06:51] VITALS: BP_SYST 98; BP_SYST 99; BP_DIAS 62; BP_DIAS 66; PULSE 79; PULSE 87; TEMP 36.8
[2017-07-13] MEDS ORDERED: LTHCR300 PO (09:42)
[2017-07-13] MEDS ORDERED: SRQ/100 PO (09:42)
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
[2017-07-13] MEDS ORDERED: ATR25 PO (10:17)
== END 2017-07-13 11:00 | disposition home or self-care (01) | DRG 885 ==
LOC: C.EDA 20:45 → C.MHU 06-27 00:06
PROVIDERS: ADMIT Psychiatry & Neurology Child & Adolescent Psychiatry; ATTEND Psychiatry & Neurology Psychiatry
DX: F31.4 Bipolar disorder, current episode depressed, severe, without psychotic features (principal); R45.851 Suicidal ideations; E87.6 Hypokalemia; K58.9 Irritable bowel syndrome, unspecified; F60.3 Borderline personality disorder

== ENCOUNTER → 2017-07-18 | Outpatient (CLI) | payer OTHER ==
[~2017-07-18] MED LIST: ATR25 PO; CYNI1000 SQ; ETON1IMP2 INTRAD; LTHCR300 PO; SRQ/100 PO
== END | disposition home or self-care (01) ==
LOC: C.LAB 17:51
PROVIDERS: ATTEND Registered Nurse Psychiatric/Mental Health
DX: Z51.81 Encounter for therapeutic drug level monitoring (principal)